=== PATIENT | male | born 1950 | race Caucasian/White ===

== ENCOUNTER 2016-12-27 10:36 | Inpatient (IN) ==
[2016-12-27] MEDS ORDERED: ZOFRAN ONE (11:25)
[2016-12-27] MEDS ORDERED: NS 2,000 ML ONE (11:25)
[2016-12-27 11:28] LABS: URINE CULTURE NEEDED? NO; URINE MICRO REVIEW NEEDED? NO; URINE SOURCE CATH
[2016-12-27] MEDS ORDERED: ZOFRAN IV ONE (11:31)
[2016-12-27] MEDS ORDERED: NS 1,000 ML IV ONE ×5 (11:31→13:01)
[2016-12-27] MEDS ORDERED: ZOSYN 3.375 GM/NS 3.375 GM/50 ML IVPB IV ONE (11:34)
[2016-12-27] MEDS ORDERED: VANCOMYCIN 1 GM/NS 1 GM/250 ML IVPB IV ONE (11:34)
[2016-12-27] MEDS ORDERED: DILAUDID IV ONE (11:35)
[2016-12-27 11:43] LABS: BILIRUBIN URINE NEGATIVE (NEGATIVE); BLOOD URINE NEGATIVE (NEGATIVE); COLOR YELLOW; GLUCOSE URINE 300 mg/dL (NEGATIVE); LEUKOCYTES URINE NEGATIVE (NEGATIVE); NITRITE URINE NEGATIVE (NEGATIVE); PROTEIN URINE TRACE mg/dL (NEGATIVE); TURBIDITY URINE CLEAR (CLEAR); UROBILINOGEN URINE 2 mg/dL (NORMAL)
[2016-12-27 11:45] LABS: UR EPITHELIAL CELLS <10 /HPF (<10); URINE BACTERIA NEGATIVE /HPF; URINE RBC <10 /HPF (<10); URINE WBC <10 /HPF (<10)
[2016-12-27 11:47] LABS: AGAP 14; ALBUMIN 3.3 g/dL (3.5-5.0); ALKALINE PHOSPHATASE 110 U/L (32-122); BUN 22 mg/dL (8-22); CALCIUM 8.3 mg/dL (8.8-10.2); CHLORIDE 99 mmol/L (98-107); COSMO 279; GOT 55 U/L (10-34); GPT 46 U/L (10-44); POTASSIUM 4.7 mmol/L (3.5-5.1); SODIUM 137 mmol/L (136-145); TCO2 24 mmol/L (25-35); TOTAL BILIRUBIN 0.89 mg/dL (0.20-1.00); TOTAL PROTEIN 5.5 g/dL (6.3-8.3)
--- NOTE | 2016-12-27 11:52 | EKG Report ---
Test Performed on : 12/27/2016 11:16:07 AM Test Reason : TACHYCARDIA Blood Pressure : / mmHG Vent. Rate : 145 BPM Atrial Rate : 145 BPM P-R Int : 140 ms QRS Dur : 084 ms QT Int : 264 ms P-R-T Axes : 033 -81 080 degrees QTc Int : 410 ms Sinus tachycardia. Left axis deviation Inferior infarct , age undetermined Possible Anterolateral infarct , age undetermined Abnormal ECG When compared with ECG of 27-NOV-2016 10:54, Significant changes have occurred Unconfirmed Result
[2016-12-27 11:53] LABS: INR 1.15; PROTIME 12.2 Seconds (9.2-11.7)
--- NOTE | 2016-12-27 12:00 | Diag Imaging Result Doc PS360 ---
CHEST-PORTABLE - 12/27/2016 INDICATION: fever TECHNIQUE: COMPARISON: 11/27/2016 FINDINGS: There is a stable left chest port in good position. There are new extensive right perihilar alveolar infiltrates. The left lung remains grossly clear. Heart size and pulmonary vascularity is normal. IMPRESSION: Extensive right perihilar infiltrate compatible with pneumonia or aspiration. Electronically signed by Judson Cm 12/27/2016 11:58 AM
[2016-12-27 12:04] LABS: BASO% 1.6 % (0.0-0.8); HEMATOCRIT 36.6 % (42.0-52.0); HEMOGLOBIN 12.8 g/dL (14.0-18.0); IMM GRAN# 0.02 X1000 (0.0-0.04); IMM GRAN% 3.2 % (0.0-0.5); LYMPH# 0.24 X1000 (1.2-3.4); LYMPH% 38.7 % (20.5-51.1); MANUAL DIFF NEEDED? YES; MCH 32.3 PG (27-31); MCV 92.4 FL (81-99); MONO# 0.03 X1000 (0.11-0.59); MONO% 4.8 % (1.7-9.3); MPV 10.7 FL (7.4-10.4); NEUT% 51.7 % (42.2-75.2); PLT 109 X1000 (130-400); RBC 3.96 XMIL (4.7-6.1)
--- NOTE | 2016-12-27 12:04 | Diag Imaging Result Doc PS360 ---
HIP W/PELVIS BILAT 2 VIEWS - 12/27/2016 INDICATION: fall TECHNIQUE: Four views COMPARISON: None FINDINGS: Bones are intact and normally aligned. Joint spaces and soft tissues are clear. There is extensive peripheral vascular disease of the femoral arteries and all the iliac arteries. IMPRESSION: No acute disease. Electronically signed by Judson Cm 12/27/2016 12:02 PM
[2016-12-27 12:13] LABS: EOS 2 % (1-10); LYMPHS 34 % (21-51); MONO 4 % (1-9)
[2016-12-27] MEDS ORDERED: NS 500 ML IV ONE (12:28)
[2016-12-27 12:54] LABS: ALLEN TEST YES; BE -0.6 mmoll (-3.0-3.0); BLOOD TYPE ARTERIAL; DRAW SITE L RADIAL; METHB 1.1 % (0.0-1.5); MODALITY CANNULA; O2(CT) 13.4 mL/dL (15.0-23.0); PCO2(98.6) 30 mmHg (35-45); PO2(98.6) 58 mmHg (60-100); SAMPLE BLOOD; SAO2 93.6 % (95.0-100.0); THB 10.4 g/dL (11.5-17.4); pH(98.6) 7.48 (7.35-7.45)
[2016-12-27] MEDS ORDERED: NS 500 ML ONE (12:56)
[2016-12-27] MEDS ORDERED: TAZIDIME 2 GM in NS 100 ML IV ONE (12:56)
[2016-12-27] MEDS ORDERED: TYLENOL ONE (12:57)
--- NOTE | 2016-12-27 12:59 | PROVIDER DOCUMENTATION ---
This chart was entered by Amanda Olmedo Scribe, acting as scribe for Milton Pratt MD. HPI-General Adult - General Chief Complaint: Fever Stated Complaint: fall- hip pain/tachycardia Time Seen by Provider: 12/27/16 10:48 Source: patient Allergies/Adverse Reactions: Patient Allergies Allergy/AdvReac Type Severity Reaction Status Date / Time No Known Allergies Allergy Verified 11/27/16 14:38 Home Medications: Home Medication List Medication Instructions Recorded Confirmed Last Taken Type Alprazolam [Xanax] 2 mg PO Q8H PRN PRN 10/14/13 10/11/15 10/10/15 22:00 History Mirtazapine [Remeron] 30 mg PO HS 10/04/15 10/11/15 11/26/16 20:00 History Duloxetine [Cymbalta] 60 mg PO QHS #0 capsule 10/07/15 10/11/15 11/27/16 08:00 Rx Nicotine Patch [Nicoderm Patch] 14 mg TD DAILY #0 patch.[id number] 10/07/15 10/11/15 Unknown Rx Acetaminophen [Tylenol] 325 mg PO Q4H PRN PRN #0 tablet 10/14/15 Unknown Rx Aspirin 81 mg PO DAILY #0 chewtab 10/14/15 11/27/16 08:00 Rx Eszopiclone [Lunesta] 2 mg PO QHS #0 tablet 10/14/15 11/26/16 21:00 Rx - History of Present Illness -Gen Adult Nature of Presenting Problems: Pt is a 66 year old male who was sent to the ED via EMS with a cc of falling today and last night. Pt has a hematoma on his right occipital, ecchymosis on his right mid arm and right hip. Pt reports he fell last night and also 45 minutes prior to arrival. PT is a cancer pt. Pt reports he has a fever and is nauseous. Location of Pain/Injury: reports: head, pelvis (right hip) Pain Radiation: reports: no radiation Quality of Pain: reports: sharp Severity: reports: mild Onset/Duration: reports: 24 hours ago Timing: reports: still present Context/Activities at Onset: reports: none Modifying Factors: improves with: nothing Associated Symptoms: reports: fever/chills, nausea, syncope, weakness. denies: vomiting Similar Symptoms Previously?: Yes Recently seen or treated by another doctor?: Yes Review of Systems - Adult - REVIEW OF SYSTEMS - ADULT Constitutional: reports: chills, fever. denies: fatique, weight loss Eyes: reports: no symptoms reported Ears, Nose, Mouth & Throat: denies: ear pain, sinus problem, loose teeth Cardiovascular: reports: no symptoms reported Respiratory: denies: cough, shortness of breath Gastrointestinal: reports: nausea. denies: diarrhea, vomiting Genitourinary: reports: no symptoms reported Musculoskeletal: reports: bone pain, muscle weakness. denies: frequent leg cramps, joint swelling Integumentary: reports: no symptoms reported Neurological: reports: no symptoms reported Psychiatric: reports: no symptoms reported Endocrine: reports: no symptoms reported Hematologic/Lymphatic: reports: no symptoms reported Allergic/Immunologic: reports: no symptoms reported All Other Systems: Reviewed and Negative Past History - Adult - PAST MEDICAL HISTORY-ADULT Review of Records: reports: Nursing Assessment Review Major Childhood Illnesses: reports: denies history Cardiovascular: reports: HTN Respiratory: reports: COPD Gastrointestinal: reports: cancer Obstetrical/Gynecological: reports: denies history Genitourinary: reports: denies history Musculoskeletal: reports: denies history Neurological: reports: denies history Endocrine/Immune: reports: Diabetes Other Conditions: reports: denies history - PRIOR SURGERIES/PROCEDURES Surgical/Procedure History: reports: cardiac stent - IMMUNIZATION STATUS Childhood Immunizations: See Nurse Assessment Flu Vaccine: See Nurse Assessment - FAMILY HISTORY Family History: reviewed, not pertinent Physical Exam-General - PHYSICAL EXAM-ADULT Initial Vital Signs Reviewed: Yes - CONSTITUTIONAL General Appearance: alert, mild distress - EYES Eyes: PERRL/EOMI, pink conjunctivae - HEAD, EARS, NOSE, MOUTH & THROAT HENMT: normocephalic/atraumatic, moist mucous membranes - NECK Neck: non-tender, full range of motion - RESPIRATORY Respiratory: chest non-tender, lungs clear, normal breath sounds - CARDIOVASCULAR Cardiovascular: tachycardia, systolic murmur (4/6) - GASTROINTESTINAL (ABDOMEN) Abdominal Exam: normal bowel sounds, non tender, soft - MUSCULOSKELETAL Back Exam: normal inspection, no vertebral tenderness Extremity: negative: normal range of motion - SKIN Integumentary: ecchymosis (right mid arm and right hip) - NEUROLOGIC Neurologic: grossly normal - PSYCHIATRIC Psych/Mental Status: normal mood/affect, normal thought content, normal thought process, oriented x 3 Progress - PLAN OF CARE/RESULTS Progress/Plan/Lab Results: Vital Signs - 8 hr 12/27/16 10:42 Temperature 100.5 F H Pulse Rate 132 H Respiratory Rate 18 Blood Pressure 91/65 O2 Sat by Pulse Oximetry 96 Result Diagrams: 12/27/16 11:00 12/27/16 11:00 - EKG 1 Time of EKG reading by physician:: 11:24 EKG Read and Signed by:: Milton Pratt EKG Interpretation (*Must complete 3 of following elements*): Abnormal Rate: 145 (left axis deviation; inferior infart, age undetermined; possible anterolateral infarct, age undetermined ) Rhythm: sinus tachycardia - CONSULTS/PCP/HOSPITALIST Notification #1 *Consult/PCP/Hospitalist*: Foster Time Discussed: 12:57 Consult Disposition: Admit Departure - Departure Date of Disposition Decision: 12/27/16 Time of Disposition Decision: 12:00 DIAGNOSIS: Sepsis Disposition: ADMITTED INPATIENT 09 Certified Medical Emergency: Emergent Condition: Fair Referrals and Follow-Ups: Zack Elkins MD [ACTIVE STAFF PHYSICIAN] - - Critical Care Note This patient required my direct & personal management of CC.: Yes Total Time (mins): 40 (following BP, starting pressors, more fluids, calling admission MD) Critical Care Statement: This patient required my direct personal management to treat or rule out processes, the absence of which, could potentiallly result in sudden, clinically significant life or limb threatening deterioration. This chart was documented by the indicated scribe, (Amanda Olmedo Scribe) and accurately reflects the services I performed and decisions made by me, Milton Pratt MD, as attested by the provider's signature.
[2016-12-27] MEDS ORDERED: TYLENOL PO ONE (13:00)
[2016-12-27] MEDS ORDERED: FENTANYL IV ONE (13:22)
[2016-12-27] MEDS: LEVOPHED 8 MG in D5 1/2 NS 250 ML IV SCH ×4 (15:22→18:08)
--- NOTE | 2016-12-27 15:48 | Diag Imaging Result Doc PS360 ---
EXAM: ELBOW COMPLETE RIGHT HISTORY: TRAUMA TECHNIQUE: Portable three views COMMENT: The lateral view is suboptimal. There is soft tissue swelling and possibly some soft tissue gas superficial to the olecranon. No evidence of acute fracture or dislocation is present. IMPRESSION: No acute bony disease. Electronically signed by Chalino Stiles 12/27/2016 3:46 PM
[2016-12-27] MEDS ORDERED: MORPHINE IV ONE (17:00)
[2016-12-27] MEDS: DUONEB (A & A) INH PRN (17:19)
[2016-12-27] MEDS ORDERED: ATIVAN ONE (17:49)
[2016-12-27] MEDS ORDERED: VANCOMYCIN IV PER PHARMACY MISC SCH (18:00)
[2016-12-27] MEDS ORDERED: ATIVAN IV ONE (18:03)
--- NOTE | 2016-12-27 18:44 | HISTORY AND PHYSICAL ---
HISTORY OF PRESENT ILLNESS: Mr. Palomares is a 66-year-old, white gentleman, patient of Dr. Patel, who has metastatic esophageal cancer who fell twice, once last night and once this morning. He called Dr. Zack Elkins who is his oncologist and he told him to come up here. He has been sick and was found to have pneumonia on the right side. Mr. 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 Mr. Palomares also has a history of heart attack and 2 stents placed. He has maturity onset diabetes as well as history of hypertension. He had arthroscopic knee surgery on the left side and appendectomy. He has gone through radiation as well as chemotherapy and he is under the care of Dr. Elkins. CURRENT MEDICATIONS: Rosuvastatin 20 mg daily, mirtazapine 30 mg daily, metformin 500 mg daily, [place] 7.5, fenofibrate acid 35 mg, duloxetine 30 mg daily, dexamethasone 4 mg twice a day, bupropion and alprazolam. REVIEW OF SYSTEMS: He has some intermittent chest pain. He is very weak and nauseous. He had some head trauma and has some headaches related to that. REVIEW OF SYSTEMS: Noncontributory. PHYSICAL EXAMINATION: VITAL SIGNS: Temperature 98.2 degree Fahrenheit, pulse 102 per minute, respiratory rate 26 per minute, blood pressure was 96/65, O2 saturation is 94. HEENT: Normocephalic. He has some bruising on the head. He had joce holes done in the past to get the radiation to the brain. PERRLA. Fundus examination not done at the present time. ENT examination unremarkable. NECK: Supple. JVP normal. There is no evidence of lymphadenopathy, thyroid enlargement. EXTREMITIES: Minimal pedal edema noted. No calf tenderness noted. No cyanosis or clubbing noted. VASCULAR: He has anemia. Pedal pulses are well felt. BREAST EXAMINATION: Normal. CHEST: Normal on inspection. LUNGS: Clear to auscultation except for right basal rales. PMI in the normal position. HEART: Sounds normal. No murmur, gallop or rub noted. ABDOMEN: Nondistended. Hernial orifices normal. No guarding, rigidity, free fluid, masses, or organomegaly. Bowel sounds normal. RECTAL EXAMINATION: Deferred. CENTRAL NERVOUS SYSTEM: Patient is alert and oriented. Speech is normal. Cranial nerves normal. Motor and sensory system examination: He moves all the extremities. Deep tendon reflexes normal. Plantars downgoing. Skull and spine examination normal for age. No cerebellar signs or signs of meningeal irritation. LOCOMOTOR EXAMINATION: Unremarkable. SKIN EXAMINATION: Unremarkable. LABORATORY: Reveals pancytopenia. INR is 1.15. Arterial blood gases reveal mild hypoxia and has minimal dehydration. Plasma lactate is 4.5. Urinalysis is negative. IMPRESSION: 1. Pneumonia. 2. Pancytopenia. 3. History of metastatic esophageal cancer. 4. History of head trauma today following a fall. PLAN: 1. We will try to get a CT scan of the brain. 2. Start IV antibiotics. 3. Get ID consultation as well as a consultation with Dr. Elkins and Cardiology consultation as he has some recurrent chest pain. EKG has shown significant ST-elevation in leads V3, V4, V5 and V6. He is in sinus tachycardia, however, intermittently he has some short runs of ventricular tachycardia as noted on the telemetry in the emergency room. cc: MD Tony Wood Jr, MD
--- NOTE | 2016-12-27 19:36 | Diag Imaging Result Doc PS360 ---
EXAM: HEAD W/O CONTRAST TECHNIQUE: Dose reduction protocol was used. INDICATION: head injury,Brain metastasis. COMPARISON: None. FINDINGS: There is no definite acute infarct given the limited sensitivity of CT versus MRI. There is no discrete intracranial mass, mass effect, or intracranial hemorrhage. There is a moderate-sized subgaleal scalp hematoma near the apex of the skull on the right. There are small radiopaque foreign bodies embedded in the skull. Two are embedded anteriorly on the right and left and one is in the right parietal region in the region of the subgaleal hematoma. These are likely treatment related. The hematoma on the right is probably related to placement of the small metallic focus. IMPRESSION: No evidence of acute intracranial pathology by CT. Electronically signed by Eduard Rooney 12/27/2016 7:33 PM
[2016-12-27] MEDS: ZOSYN 3.375 GM/NS 3.375 GM/50 ML IVPB IV SCH (21:08)
[2016-12-27] MEDS: REMERON PO SCH (21:09)
[2016-12-27] MEDS: CYMBALTA PO SCH (21:09)
[2016-12-27] MEDS: DECADRON PO SCH (21:09)
[2016-12-27] MEDS: DILAUDID IM PRN (21:16)
[2016-12-27] MEDS: VANCOMYCIN 1.4 GM in NS 250 ML IV SCH (23:08)
[2016-12-28] MEDS: LEVOPHED 8 MG in D5 1/2 NS 250 ML IV SCH (01:25)
[2016-12-28] MEDS: ZOSYN 3.375 GM/NS 3.375 GM/50 ML IVPB IV SCH ×2 (02:28→08:27)
--- NOTE | 2016-12-28 05:34 | EKG Report ---
Test Performed on : 12/27/2016 6:25:08 PM Test Reason : CP Blood Pressure : / mmHG Vent. Rate : 110 BPM Atrial Rate : 110 BPM P-R Int : 150 ms QRS Dur : 088 ms QT Int : 332 ms P-R-T Axes : 019 -72 048 degrees QTc Int : 449 ms Sinus tachycardia. Left axis deviation Inferior infarct (cited on or before 27-DEC-2016) Cannot rule out Anterior infarct (cited on or before 27-DEC-2016) Abnormal ECG When compared with ECG of 27-DEC-2016 17:48, (Unconfirmed) Serial changes of evolving Anterior infarct present Serial changes of evolving Inferior infarct present Unconfirmed Result
--- NOTE | 2016-12-28 05:49 | EKG Report ---
Test Performed on : 12/27/2016 5:48:15 PM Test Reason : No Order in [facility] Blood Pressure : / mmHG Vent. Rate : 125 BPM Atrial Rate : 125 BPM P-R Int : 150 ms QRS Dur : 090 ms QT Int : 316 ms P-R-T Axes : 036 -81 074 degrees QTc Int : 456 ms Sinus tachycardia. Left axis deviation Low voltage QRS Inferior infarct (cited on or before 27-DEC-2016) Anterolateral infarct (cited on or before 27-DEC-2016) ACUTE GA / STEMI Consider right ventricular involvement in acute inferior infarct Abnormal ECG When compared with ECG of 27-DEC-2016 11:16, (Unconfirmed) Questionable change in initial forces of Anterolateral leads Questionable change in initial forces of Inferior leads ST elevation now present in Inferior leads ST elevation now present in Anterior leads Unconfirmed Result
[2016-12-28 06:06] LABS: HEMATOCRIT 29.1 % (42.0-52.0); HEMOGLOBIN 9.8 g/dL (14.0-18.0); LYMPH# 0.25 X1000 (1.2-3.4); LYMPH% 32.5 % (20.5-51.1); MANUAL DIFF NEEDED? NO; MCH 31.6 PG (27-31); MCHC 33.7 g/dL (33-37); MCV 93.9 FL (81-99); MONO# 0.02 X1000 (0.11-0.59); MONO% 2.6 % (1.7-9.3); MPV 11.5 FL (7.4-10.4); NEUT% 64.9 % (42.2-75.2); PLT 72 X1000 (130-400)
[2016-12-28 06:22] LABS: AGAP 12; BUN 24 mg/dL (8-22); CALCIUM 7.2 mg/dL (8.8-10.2); CHLORIDE 102 mmol/L (98-107); COSMO 280; POTASSIUM 4.3 mmol/L (3.5-5.1); SODIUM 135 mmol/L (136-145); TCO2 21 mmol/L (25-35)
[2016-12-28] MEDS: HUMALOG SUBQ SCH ×4 (06:23→20:21)
--- NOTE | 2016-12-28 06:25 | Diag Imaging Result Doc PS360 ---
EXAM: CHEST-PORTABLE HISTORY: pneumonia TECHNIQUE: Portable COMPARISON: 12/27/2016 FINDINGS: There are dense infiltrates throughout the right lung. These are more pronounced than on the prior exam. Smaller infiltrates in the left base as well. No change in the left-sided collecting portacatheter. No pneumothorax. No cardiomegaly. No pleural effusions identified. IMPRESSION: Worsening infiltrates. Electronically signed by Miguel Arceo 12/28/2016 6:22 AM
[2016-12-28] MEDS: DECADRON PO SCH ×2 (08:27→20:22)
[2016-12-28] MEDS: CRESTOR PO SCH (08:27)
[2016-12-28] MEDS: GLUCOPHAGE PO SCH (08:27)
[2016-12-28] MEDS: DILAUDID IM PRN (08:49)
--- NOTE | 2016-12-28 09:37 | CONSULTATION ---
DATE OF CONSULTATION: 12/28/2016 INDICATION: Possible arrhythmia. HISTORY OF PRESENT ILLNESS: Mr. Palomares is a 66-year-old, white male with a history of metastatic esophageal cancer followed by [facility]. He apparently had some sort of procedure on Saturday, in which they did an intracranial placement of beads within a metastases. He apparently had a fall that night and the next day on Saturday he was supposed to present to Dr. Elkins's office, but did not do that. He apparently had another fall and subsequently presented to the ER last night. He has reported some issue with cough, but has not had any issues with fever. He has been diagnosed with pneumonia here, as well as pancytopenia. There was some question of some arrhythmia last night, specifically possible ventricular tachycardia. Patient did not any heart racing. PAST MEDICAL HISTORY: 1. Significant for coronary disease with previous PCI. I do not have my records available for review at this time. 2. History of metastatic esophageal cancer with metastases to the brain, as well as below the diaphragm. According to his most recent note from [facility] that was from December 21, it appears that he has had progression of disease despite treatment. 3. Type 2 diabetes. 4. Hyperlipidemia. SOCIAL HISTORY: No current tobacco use. FAMILY HISTORY: Significant for hypertension. REVIEW OF SYSTEMS: A 10 system review of systems is negative, except for those things mentioned in HPI. He has had some reduced oral intake secondary to difficulty swallowing. PHYSICAL EXAMINATION: Vital Signs: Patient is afebrile. His heart rates have been predominantly in the 80s to 90s. His blood pressure has been in the 110s to 130s systolic. General: He is an ill-appearing white male currently in no acute distress and actually is quite pleasant. HEENT: Oropharynx is moist. Normal dentition. Eye examination is pink conjunctivae, white sclerae. Neck: Examination shows no obvious thyromegaly or thyroid tenderness. Cardiovascular: He is in a regular rate and rhythm. Presently his monitor shows sinus tachycardia in the low 100s. He has no lower extremity edema. Chest: Exam has very coarse breath sounds noted bilaterally throughout all lung roy. He has a very difficult time rolling over and very poor inspiratory effort. Abdomen: Soft, nontender, nondistended. He has no obvious organomegaly. Skin Examination: Notable for a large ecchymoses in the right upper lateral hip area. In addition he has ecchymoses in his superior occipital region on the right side corresponding to an episode of falling and hitting his head. He has a surgical wound site kind of in the posterior frontal area on the right as well of his head. This appears to be well-healing, not draining. Neurological: He is moving all extremities well. No lateralizing deficits. Psychiatric: Alert, oriented and pleasant. He has a normal mood and affect. PERTINENT DATA: He had an echocardiogram in January showing an EF of 60%. Moderate left ventricular hypertrophy. His aorta was a little bit dilated at 4.6 cm. Mild MR was noted. His laboratory data shows a white count of 0.7, hematocrit 29.1, platelet count of 72. His sodium is 135, potassium 4.3, BUN 24, creatinine 0.9. His troponin was elevated at 0.151. His lactate was 4.5 on presentation. His electrocardiogram initially at 1748 hours showed sinus tach rate of 125 beats per minute. He had a nonspecific intraventricular conduction delay on that study. He does have inferior Q-waves. Subsequent EKG present at 1825 hours shows sinus tachycardia as QRS has narrowed down (it is at 110 beats per minute). He did have some telemetry at 1743 hours, which showed sinus tachycardia with aberrancy. At 1742 hours just prior to that, it appeared that he again had an aberrantly conducted sinus tachycardia with possibly a PVC in there. Multiple reports were reviewed, including a chest x-ray which showed dense infiltrates throughout the right lung, more pronounced since prior exam. Head CT showed no evidence of acute intracranial pathology. Post surgical changes from the implantation of the radiopaque beads were noted, as well as a subgaleal hematoma in the right parietal region. ASSESSMENT: 1. Sepsis likely secondary to pneumonia. 2. Advanced stage IV esophageal cancer, which seems to be progressing despite medical therapy. 3. History of coronary disease. PLAN: Do not believe that the patient has had significant arrhythmias during this hospitalization. Rather, it appears to be sinus tachycardia with aberrancy. Even if it was ventricular tachycardia, he does not seem to be a candidate for any invasive modalities secondary to the brain metastases, as well as secondary to his pancytopenia. I would recommend conservative therapy in this patient for his cardiac disease, and specifically I would recommend primarily treatment of the pneumonia. I do not know if I have much to offer in this patient's case presently. I will check an echocardiogram just to evaluate EF and possibility of a pericardial effusion. cc: MD Tony Ram Jr, MD
[2016-12-28] MEDS: DUONEB (A & A) INH PRN (09:47)
[2016-12-28] MEDS ORDERED: GRANIX SUBQ ONE (11:20)
[2016-12-28] MEDS: ZYRTEC PO SCH ×2 (11:20→20:22)
[2016-12-28] MEDS: MS CONTIN PO SCH ×2 (11:36→20:22)
[2016-12-28] MEDS: WELLBUTRIN PO SCH (11:38)
[2016-12-28] MEDS: MERREM 1 GM in NS 50 ML IV SCH ×2 (12:00→19:30)
--- NOTE | 2016-12-28 14:52 | CONSULTATION ---
DATE OF CONSULTATION: 12/28/2016 CONCLUSION: The patient was admitted to the hospital. He has fallen and severely hurt his right side. He on x-ray has a diffuse pneumonia in the right lung and also an infiltrate in the left lower lobe. Possibly the patient has an aspiration pneumonia. He has pancytopenia and his absolute neutrophil count is only 320. Patient also has metastatic esophageal cancer for which he is getting chemotherapy and radiation therapy and recently had what he told me was gold that was implanted in his head. RECOMMENDATIONS: I have discontinued Zosyn and placed the patient on meropenem. I agree with treating with the vancomycin pending culture results. DISCUSSION: The patient was unable provide a history and no family member was present. He as mentioned above fell and injured his right side quite a bit. His CBC shows a white count of 770, hemoglobin 9.8, and platelet count 72,000. Blood gases show a pH of 7.48, a PO2 of 58, and a pCO2 of 30. Creatinine is 0.9. GFR is greater than 60. Chest x-ray shows diffuse right lung infiltrates and also infiltrate in the left lower lobe. CT of the head showed no acute disease. Liver function studies are normal except for an AST of 55. Urinalysis showed no white cells or bacteria. Blood cultures are pending. PAST MEDICAL HISTORY/REVIEW OF SYSTEMS: I was unable to obtain. The patient was very lethargic, he had medication. His main complaint seems to be that he was hurting a lot on his right side which is the side he fell on as mentioned above. ALLERGIES: The patient's chart indicates no known allergies. HOME MEDICATIONS: Include morphine, dexamethasone, Crestor, Wellbutrin, Glucophage, hydrocodone, Remeron, Cymbalta, and Xanax. PHYSICAL EXAMINATION: Vital Signs: The patient's temperature is 98.6 degrees, pulse 110, respirations 22, blood pressure 114/82. The patient is a 66-year-old. He weighs 159 pounds. General: This is an ill- appearing, elderly male who is in no acute distress. Head, eyes, ears, nose, and throat: He can hear my spoken words. He can see near objects. No drainage was noted from the nose or ears. Neck: No meningismus. Chest: Patient has a Port-A-Cath in place. The site is not erythematous or swollen. Lungs: Clear to auscultation. Cardiovascular: Regular heart rate. Abdomen: Soft and not tender. Neurologic: The patient is awake. He can move his extremities but it is difficult for him to move his right side because he fell on that side, but he is able to move it somewhat. His sensory exam, he was intact to touch bilaterally. Integument: Patient had ecchymoses on the right side of his body and also his arm, and on the thigh, on the leg. ASSESSMENT/PLAN: Patient has pneumonia and neutropenia. The plan is to change the antibiotic from Zosyn to meropenem and continue vancomycin. COMORBIDITIES: Include that he has metastatic esophageal cancer, the patient also has gastroesophageal reflux disease, also has hyperlipidemia and diabetes mellitus. Thank you for the consult. cc: MD Tony Kohler Jr, MD MTDD
[2016-12-28] MEDS: VANCOMYCIN 1.4 GM in NS 250 ML IV SCH (17:54)
--- NOTE | 2016-12-28 18:09 | PROGRESS NOTE ---
DATE: 12/28/[address] Level [address] Patel. SUBJECTIVE: 66-year-old white gentleman, admitted to the ICU yesterday by Dr. Patel who came in at the request of Dr. Elkins who has been treating for esophageal cancer. Apparently patient is undergoing chemotherapy. History of fall twice and sustained injury to the right elbow. He was seen in the emergency room. He was found to have early sepsis syndrome with hypotension, tachycardic associated with right middle lobe pneumonia and febrile neutropenia. White cell count 0.6. Patient was admitted in ICU with IV antibiotics and IV Levophed. He has been off on Ventimask. PAST MEDICAL HISTORY, PAST SURGICAL HISTORY, MEDICINES: Were reviewed. REVIEW OF SYSTEMS: HEENT: No headache. No vision problems. Cardiopulmonary: No chest pain, shortness of breath, PND, orthopnea. No cough. GI: No nausea, vomiting, abdominal pain. : No history of hesitancy, frequency. No swelling of feet. Complains of right elbow pain requiring some pain medicine. Neuro: Lucid. No headaches. No weakness. PHYSICAL EXAMINATION: Afebrile. Tachycardic. Blood pressure is 124/80, 6 L nasal cannula. Patient is alert and oriented.HEENT Exam: Slightly pale. Pupils equal, reactive to light. Tongue is in midline. Neck: Supple. Port-A-Cath seen on the left side of the chest. Chest: Bilateral air entry. Heart: Sounds are regular. Abdomen: Belly is soft, nontender. Good bowel sounds. Extremities: No peripheral edema, cyanosis. No obvious neurological deficits noted. Right elbow is wrapped. Bandage was applied. INVESTIGATIONS: CBC: White cell count 0.7, hematocrit 29, platelets 72,000. SMA 7: Sodium 135, potassium 4.3, chloride 102, BUN 24, creatinine 0.9, glucose 200. Calcium 7.2. LFTs were normal. Blood cultures are pending. Chest x-ray on 12/28/2016 right lower lobe pneumonia. Port-A-Cath seen on the left side of the chest. CT head: No evidence of acute intracranial pathology. Small scalp hematoma noted. Elbow x-rays: No acute bony disease noted. Hip and pelvic x-rays: No acute disease. ASSESSMENT AND PLAN: 1. Early sepsis syndrome due to febrile neutropenia associated with pneumonia. Plan is hematological support, as per Dr. Elkins. 2. Hypotension. IV Levophed. 3. Oxygen protocol. 4. Type 2 diabetes on Humalog subcu sliding scale. 5. Type 2 diabetes on metformin. 6. Hyperlipidemia on Crestor and currently patient has been taking IV vancomycin and meropenem. 7. Pancytopenia. Receiving Granix 480 mcg subcutaneous daily and daily monitoring of this progress. 8. Advanced directives, living will, DNR. Level of documentation 35 minutes. cc: MD Tony Matamoros Jr, MD
[2016-12-28] MEDS: REMERON PO SCH (20:21)
[2016-12-28] MEDS: CYMBALTA PO SCH (20:21)
[2016-12-29] MEDS: LEVOPHED 8 MG in D5 1/2 NS 250 ML IV SCH ×2
[2016-12-29] MEDS: MERREM 1 GM in NS 50 ML IV SCH ×3 (02:37→19:19)
[2016-12-29] MEDS ORDERED: DUONEB (A & A) ONE (03:10)
[2016-12-29] MEDS: HUMALOG SUBQ SCH ×4 (06:07→20:23)
[2016-12-29] MEDS: WELLBUTRIN PO SCH (08:46)
[2016-12-29] MEDS: CRESTOR PO SCH (08:46)
[2016-12-29] MEDS: MS CONTIN PO SCH ×2 (08:46→20:24)
[2016-12-29] MEDS: GLUCOPHAGE PO SCH (08:47)
[2016-12-29] MEDS: DECADRON PO SCH ×2 (08:47→20:24)
[2016-12-29] MEDS: ZYRTEC PO SCH ×2 (08:47→20:24)
[2016-12-29] MEDS: GRANIX SUBQ SCH (10:14)
[2016-12-29 10:26] LABS: BASO% 3.2 % (0.0-0.8); HEMATOCRIT 28.9 % (42.0-52.0); HEMOGLOBIN 10.1 g/dL (14.0-18.0); LYMPH# 0.27 X1000 (1.2-3.4); LYMPH% 12.2 % (20.5-51.1); MANUAL DIFF NEEDED? NO; MCH 31.8 PG (27-31); MCHC 34.9 g/dL (33-37); MCV 90.9 FL (81-99); MONO# 0.04 X1000 (0.11-0.59); MONO% 1.8 % (1.7-9.3); MPV 11.3 FL (7.4-10.4); NEUT% 82.8 % (42.2-75.2); PLT 55 X1000 (130-400); RBC 3.18 XMIL (4.7-6.1)
[2016-12-29] MEDS: DUONEB (A & A) INH PRN ×3 (10:55→22:50)
--- NOTE | 2016-12-29 10:57 | PROGRESS NOTE ---
DATE: 12/29/2016 SUBJECTIVE: The patient is awake, eating well, and for the last 24 hours hemodynamics were stable. He is on Levophed 3 mcg. REVIEW OF SYSTEMS: General: No difficulty in swallowing. No shortness of breath, chest pain. GI: No GI symptoms. OBJECTIVE: Vital Signs: On examination, he is afebrile, tachycardic. Blood pressure is 120/70 on 6 L nasal cannula. HEENT exam: Atraumatic, normocephalic. Pupils equal, react to light. TMs are normal. Nose and throat within normal limits. Neck: Supple. No lymphadenopathy. Lungs: He had rhonchi, crackles on the right side of the chest. Port-A-Cath seen in the left upper chest. Heart: Distant heart sounds. Abdomen: Belly is soft, nontender. Good bowel sounds. Mclain was placed. Extremities: No peripheral edema. Neurologic exam: No focal deficits. INVESTIGATIONS: CBC: White cell count 0.7, hematocrit 29, platelets 72. SMA 7: Sodium 135, potassium 4.3, chloride 102, BUN 24, creatinine 0.9, glucose 200 ,calcium 7.2. ASSESSMENT AND PLAN: 1. Sepsis syndrome due to pneumonia with underlying pancytopenia, stable. Slowly wean off Levophed. 2. Pancytopenia on hematological support, currently receiving Xanax. 3. Right-sided pneumonia, most likely aspiration, and currently patient has been on antibiotics, meropenem 1 g q. 8 hours and vancomycin. 4. Type 2 diabetes on metformin, currently stable. 5. Living Will, [id number]. LEVEL OF DOCUMENTATION: 25 minutes. cc: MD Tony Matamoros Jr, MD
[2016-12-29] MEDS: VANCOMYCIN 1.4 GM in NS 250 ML IV SCH (11:00)
--- NOTE | 2016-12-29 11:24 | PROGRESS NOTE ---
DATE: 12/29/2016 SUBJECTIVE: Mr. Palomares is sitting in hospital bed and denies any acute complaints. OBJECTIVE/VITAL SIGNS: Temperature 97.5 degrees, heart rate 111, respiratory rate 22, blood pressure 89/69, O2 saturation 96% on 6 L nasal cannula. LABS: There are no new labs for 12/29/2016. CBC and CMP are currently pending. PHYSICAL EXAM: CV: Tachycardia, but regular rhythm. S1, S2 heard. Coarse breath sounds bilaterally. Abdomen: Soft, nontender, nondistended. Positive bowel sounds. Extremities: Edema x4, 1+. ASSESSMENT AND PLAN: 1. Stage IV esophageal cancer. Patient is status post carboplatin and Taxol last on 12/26/2016. Treatment is currently on hold. 2. Neutropenic fever. The patient will continue on intravenous antibiotics with vancomycin and meropenem. The patient also will continue to get Granix. We will continue to monitor his complete blood count closely. I will order a complete blood count for today. Other supportive care including transfusions and platelets as needed. 3. Pneumonia. Continue oxygen support, as well as nebulizer treatments and intravenous antibiotics. Dictated by LATESHA Bautista for Letty Vogel MD cc: MD Tony Estrella Jr, MD
--- NOTE | 2016-12-29 13:43 | ECHO REPORT ---
ORDER DATE: 12/28/2016 INTERPRETING PHYSICIAN: Dr. Kiran Busby ECHOCARDIOGRAPHIC MEASUREMENTS: Interventricular septum: 1.5 cm. Left ventricular posterior wall: 0.9 cm. Diastolic diameter: 4.0 cm. Left atrium: 4 cm. Aortic root: 4 cm. SUMMARY OF THE 2-DIMENSIONAL IMAGIN. Technically suboptimal study. Poor acoustic window. 2. Aortic valve leaflets are trileaflet. Mitral valve was normal. Tricuspid valve was normal. Ascending aorta was mildly enlarged. 3. Mitral valve leaflets are normal. 4. Normal left ventricular cavity size. There is asymmetric left ventricular hypertrophy. Estimated ejection fraction of 55%. There is inferoapical hypokinesis. 5. There is a trace to mild mitral regurgitation. Mild tricuspid regurgitation. Peak velocity across the tricuspid valve was 2.5 m/sec by Doppler studies. There is no aortic stenosis or regurgitation. There is no pericardial effusion or obvious intracardiac mass or thrombus seen. Technically suboptimal study. cc: MD Enrico Rose MD Roger H. Moss Jr, MD
[2016-12-29] MEDS: CYMBALTA PO SCH (20:23)
[2016-12-29] MEDS: REMERON PO SCH (20:23)
[2016-12-29] MEDS ORDERED: ZYRTEC PO SCH (21:00)
[2016-12-30] MEDS: MERREM 1 GM in NS 50 ML IV SCH ×3 (02:31→18:04)
[2016-12-30] MEDS: XANAX PO PRN (04:18)
[2016-12-30] MEDS: VANCOMYCIN 1.4 GM in NS 250 ML IV SCH (04:40)
[2016-12-30 05:49] LABS: BASO% 0.7 % (0.0-0.8); HEMATOCRIT 27.4 % (42.0-52.0); HEMOGLOBIN 9.6 g/dL (14.0-18.0); IMM GRAN# 0.12 X1000 (0.0-0.04); IMM GRAN% 8.6 % (0.0-0.5); LYMPH# 0.19 X1000 (1.2-3.4); LYMPH% 13.6 % (20.5-51.1); MANUAL DIFF NEEDED? YES; MCH 31.7 PG (27-31); MCV 90.4 FL (81-99); MONO# 0.04 X1000 (0.11-0.59); MONO% 2.9 % (1.7-9.3); MPV 11.6 FL (7.4-10.4); NEUT% 74.2 % (42.2-75.2); PLT 47 X1000 (130-400); RBC 3.03 XMIL (4.7-6.1)
[2016-12-30] MEDS: HUMALOG SUBQ SCH ×4 (06:03→20:16)
[2016-12-30 06:53] LABS: BANDS 3 % (0-1); LYMPHS 11 % (21-51); MONO 4 % (1-9)
--- NOTE | 2016-12-30 07:08 | Diag Imaging Result Doc PS360 ---
EXAM: CHEST-PORTABLE HISTORY: dyspnea TECHNIQUE: AP portable chest at 0500 COMMENT: Compared to the previous study of 12/28/2016 there has been improvement in the alveolar opacification in the right upper lobe. Otherwise has been no significant change. IMPRESSION: Improved pulmonary edema. Electronically signed by Chalino Stiles 12/30/2016 7:06 AM
[2016-12-30] MEDS: GLUCOPHAGE PO SCH (08:11)
[2016-12-30] MEDS: CRESTOR PO SCH (08:11)
[2016-12-30] MEDS: DECADRON PO SCH ×2 (08:11→20:14)
[2016-12-30] MEDS: ZYRTEC PO SCH ×2 (08:11→20:13)
[2016-12-30] MEDS: MS CONTIN PO SCH ×2 (08:11→20:15)
[2016-12-30] MEDS: WELLBUTRIN PO SCH (08:11)
[2016-12-30] MEDS: GRANIX SUBQ SCH (09:02)
--- NOTE | 2016-12-30 10:31 | PROGRESS NOTE ---
DATE: 12/30/2016 SUBJECTIVE: In the ICU for the last 24 hours. Patient is doing very well. More alert. He has off of Levophed. Hemodynamics are stable. REVIEW OF SYSTEMS: Trouble swallowing with solids. No shortness of breath. No chest pain. Right elbow slightly improving. No GI symptoms. No swelling of feet. Neuro exam, no confusion noted. OBJECTIVE: Vital signs: Temp is 98 degrees, pulse is 80, blood pressure is 111/74, on room air 100%. HEENT Exam: Within normal limits. Neck: Supple. Chest: Decreased rhonchi on the right side. Heart: Sounds are regular. Abdomen: Belly is soft, nontender. Good bowel sounds. Neurologic: No neurological deficits. INVESTIGATIONS: White cell count of 1.4, hematocrit 27, platelets 47,000. Chest x-ray is improving on the right lung pneumonia. Blood cultures were negative. ASSESSMENT AND PLAN: 1. Sepsis syndrome due to aspiration with pancytopenia. Neutropenia slowly improving. Continue on neutropenic precautions. Currently receiving meropenem 1 g q.8, along with vancomycin. 2. Pancytopenia. On Granix on a daily basis. 3. Hypertension is better off vasopressors. 4. Esophageal cancer with dysphagia only on solids. 5. Deep vein thrombosis prophylaxis. Basically with antithrombotic stockings in light of thrombocytopenia. 6. Nonsustained ventricular tachycardia. Echocardiography findings noted EF 55%, inferior apical hypokinesis. Currently stable. Living Will, DNR. LEVEL OF DOCUMENTATION: 25 minutes. cc: MD Tony Matamoros Jr, MD
[2016-12-30] MEDS: DUONEB (A & A) INH PRN ×2 (16:14→19:29)
--- NOTE | 2016-12-30 18:29 | PROGRESS NOTE ---
DATE: 12/30/2016 CHIEF COMPLAINT: "When can I go home." HISTORY OF PRESENT ILLNESS: Mr. Palomares revealed much better over the last 24 hours. He denies any new complaints today. Eating well. PHYSICAL EXAMINATION: Vital Signs: Temperature 97.5 degrees, pulse 84, respiratory rate 18, blood pressure 106/74, O2 saturation 100% on room air. General: This is a chronically ill- appearing, man in no acute distress. He has numerous family members in his room during consultations. Eyes: Sclerae anicteric. Cardiovascular: Regular rate and rhythm. Normal S1, S2. No murmurs, rubs, or gallops. Pulmonary: Coarse bilateral breath sounds with scattered rhonchi. No wheezes, rales, or rhonchi. No increased work of breathing. Gastrointestinal: Abdomen is soft, nontender, nondistended with normoactive bowel sounds. Extremities: No clubbing, cyanosis, or edema. 2+ pulses x4. Neurologic: Alert and oriented x 3. No focal deficit. LABORATORY DATA: White count 1.4, hemoglobin 9.6, platelet count 47,000. IMAGING: No new imaging. ASSESSMENT AND PLAN: 1. Stage IV esophageal cancer status post carboplatin Taxol therapy. Treatment is being held at this time. Expect count recovery over the next few days. Continue supportive care. Reassess for further treatment once acute events resolve. 2. Neutropenic fever: His fever has resolved. Cultures are pending. He continues on empiric antibiotic coverage at this time. He continues on growth factor support at this time. 3. Pancytopenia: Transfuse p.r.n. His platelet count is still low at 47,000, with no signs of bleeding. No need for transfusion today. 4. Pneumonia: He has 100% oxygen saturation on room air. Continue to monitor. cc: MD Tony Estrella Jr, MD
[2016-12-30] MEDS: CYMBALTA PO SCH (20:13)
[2016-12-30] MEDS: REMERON PO SCH (20:14)
[2016-12-30] MEDS: VANCOMYCIN 1 GM/NS 1 GM/250 ML IVPB IV SCH (23:50)
[2016-12-31 01:28] LABS: HEMATOCRIT 25.1 % (42.0-52.0); HEMOGLOBIN 8.8 g/dL (14.0-18.0); IMM GRAN# 0.14 X1000 (0.0-0.04); IMM GRAN% 18.7 % (0.0-0.5); LYMPH# 0.18 X1000 (1.2-3.4); MANUAL DIFF NEEDED? YES; MCH 31.4 PG (27-31); MCHC 35.1 g/dL (33-37); MCV 89.6 FL (81-99); MONO# 0.03 X1000 (0.11-0.59); MPV 10.7 FL (7.4-10.4); NEUT% 53.3 % (42.2-75.2); PLT 36 X1000 (130-400)
[2016-12-31] MEDS: XANAX PO PRN ×2 (02:28→20:58)
--- NOTE | 2016-12-31 03:31 | CONSULTATION ---
DATE OF CONSULTATION: 12/28/2016 REASON FOR CONSULTATION: Stage IV esophageal cancer. Patient known to Dr. Elkins. SOURCE: Information was obtained from the patient and the medical record. HISTORY OF PRESENT ILLNESS: Mr. Palomares is a pleasant, 66-year-old, man followed by Dr. Zack Elkins for a history of stage IV esophageal cancer. He is currently on palliative treatment with weekly carboplatin and Taxol who received cycle 1, day 14 on 12/26/2016. He was subsequently admitted to the hospital for neutropenic fever, sepsis, and right-sided pneumonia. He recently had intracranial gold beads implanted for radiation therapy on Saturday. He subsequently fell on Saturday night and Saturday during the day. He was then brought to the ER after suffering one additional fall. He reports a cough ongoing for several days. While he was in the ER, he possibly suffered a run of ventricular tachycardia. He was admitted to the hospital and started on nebulizers as well as IV Merrem and IV vancomycin. His white blood cell count today is 0.77. Platelet count is 72,000. PAST MEDICAL HISTORY: 1. Stage IV esophageal cancer with metastatic disease. Most recently, he has had progression including brain metastasis. On Saturday, he had gold beads inserted into the brain for radiation treatments. He is currently on palliative chemotherapy with carboplatin and Taxol. He received cycle 1, day 14 on 12/26/2016. 2. Coronary artery disease, status post percutaneous intervention with coronary artery stents placed between 1997 and 2002. 3. Type 2 diabetes mellitus. 4. Hyperlipidemia. PAST SURGICAL HISTORY: 1. Coronary artery stents placed several times between 1997 and 2002. 2. Gold beads implanted into the brain for radiation therapy in November of 2016. SOCIAL HISTORY: He used to smoke between 1-1/2 packs to 1 pack per day. He used to drink 1-2 drinks per week, 1-3 glasses of wine per week. Denies any environmental exposures. FAMILY HISTORY: His mother of cancer at age 46. He has a family history of brain cancer. His father at age 84. He has a family history of coronary artery disease and heart disease. ALLERGIES: No known food or drug allergies. MEDICATIONS: Albuterol inhaler 1 puff every 6 hours as needed for wheezing, Cymbalta 60 mg p.o. daily, Decadron 4 mg p.o. b.i.d., fentanyl patch 12 mcg per hour to change patch every 3 days, Restoril 30 mg p.o. at bedtime as needed for insomnia, Lyrica 50 mg 1 p.o. in the morning and 2 p.o. at bedtime, MS Contin 15 mg 1 p.o. b.i.d., [place] 10 mg/325 mg 1 p.o. every 4-6 hours as needed for pain, promethazine or Phenergan 25 mg p.o. every 6-8 hours as needed for nausea and vomiting, Remeron 30 mg p.o. at bedtime, Flomax 0.4 mg 1 p.o. daily, Xanax 2 mg 1 tablet every 8 hours as needed. In the hospital, he is currently on IV Merrem and IV vancomycin. REVIEW OF SYSTEMS: General: He reports weight loss, decreased appetite, fevers, chills, weakness, and fatigue. Skin: Denies rashes, itching, or bruising. Head: Denies headaches. Eyes: Denies blurry vision, double vision, change in visual roy or drainage. Ears: Denies abnormal hearing, ear pain, discharge, tinnitus, or vertigo. Nose: Denies discharge, bleeding, obstruction, or sensation of abnormal odors. Throat: Denies sore throat, change in voice, hoarseness, mouth pain, or dental problems. Breasts: Denies masses, discharge from the nipples, or breast pain. Cardiovascular: Denies chest pain or pressure, orthopnea, paroxysmal nocturnal dyspnea, peripheral edema, palpitations, or claudications. Respiratory: Reports cough and dyspnea on exertion. Reports intermittent wheezing. Denies hemoptysis. Gastrointestinal: Reports decreased appetite. Denies dysphagia, odynophagia, nausea, vomiting, hematemesis, diarrhea, hematochezia, melena, constipation, change in bowel or bladder habits, abdominal pain, or jaundice. Genitourinary: Denies discharge, lesions, dysuria, hematuria, urgency, hesitation, difficulty starting stream. Endocrine: Denies polyphagia, polydipsia, polyuria, goiter, or tremor. Allergy and Immunologic: Denies hayfever, eczema, sensitivity to seeds, pollens, or dander. Musculoskeletal: Denies muscle pain, swelling, stiffness, or limitation of range of motion. Neurologic: Reports generalized weakness, difficulty with balance, falls. Denies fainting, seizures, paralysis, tremor, involuntary movements, change in sensation, bowel or bladder incontinence. Psychiatric: Reports anxiety and insomnia. Denies memory problems, judgment problems, delusions, or hallucinations. PHYSICAL EXAMINATION: Vital Signs: T-max 100.5 degrees Fahrenheit, respirations 18, heart rate 90, blood pressure 114/82, SpO2 95% on 2 L per minute. Weight 159 pounds. Height is 5 feet 11 inches. General: Well-groomed, man resting in his hospital bed comfortably. No acute distress. He does appear mildly chronically ill. He is alone at the bedside. Skin: Pale. No cyanosis. Warm, dry, and intact. No rashes. Mild ecchymoses to bilateral upper extremities. No edema. HEENT: Head normocephalic, atraumatic. Eyes: Pupils equal, round, and reactive to light. Extraocular movements grossly intact. Nose: Mucosa pale, pink, and moist without visible discharge or bleeding. Throat and oropharynx: Mucous membranes pale, pink, and dry, and cracked with some scattered dried blood. No visible thrush. No visible ulcerations. Neck: Supple. Trachea midline. No jugular venous distention. Pulmonary: Unlabored. Coarse crackles throughout and diminished at bilateral bases. On oxygen at 6 L per minute via nasal cannula. Back: No paraspinal tenderness or deformities. No costovertebral angle tenderness. Cardiovascular: Regular rate and rhythm. S1, S2. No S3 or S4. GI: Soft, nontender, and nondistended. Hypoactive bowel sounds x4. : A Mclain in place. Clear elsa urine noted in the Mclain. Musculoskeletal: Moves all extremities equally, bilateral upper and lower extremities. Strength is fair, 4/5. Bilateral dorsalis pedis and posterior tibial pulses 1+. Neurologic: Alert and oriented x3. Cranial nerves 2-12 grossly intact. Gait not assessed because he was in the hospital bed. IMAGING AND DIAGNOSTICS: On 12/28/2016, chest x-ray, dense infiltrates in the right lung. On 12/27/2016, blood cultures x2 pending. CBC: White blood cell count of 0.77, red blood cell count 3.1, hemoglobin 9.8, hematocrit 29.1, platelet count 72,000. Sodium 135, potassium 4.3, chloride 102, CO2 21, BUN 24, creatinine 0.9, glucose 200. ASSESSMENT AND PLAN: 1. Stage IV esophageal cancer. Recently noted to have progression of the disease and new brain metastasis. He was started on Decadron 4 mg by mouth twice a day which has been continued in the hospital. He has been evaluated by Dr. Dotson on Saturday of this week. He had gold beads placed for radiation therapy. Radiation therapy to the brain has not been started yet. He is currently on palliative chemotherapy, status post cycle 1, day 14 of weekly carboplatin and Taxol which was given on 12/26/2016. However, unfortunately, he was not able to return to the clinic to receive his Neulasta injection. He experienced multiple falls at home and was subsequently admitted to the hospital. Cycle 1, day 1 of weekly carboplatin and Taxol was initiated on 12/11/2016. 2. Neutropenic fever and sepsis, neutropenia secondary to recent chemotherapy. T-max 100.5 degrees Fahrenheit. Blood cultures pending x2 from 12/27/2016. Chest x-ray shows right lobe infiltrates, consistent with pneumonia. He is currently on intravenous Merrem and intravenous vancomycin. Infectious disease has been consulted. We will start Granix 480 mcg subcutaneous daily with Zyrtec 10 mg by mouth twice a day. We will monitor CBC with differential daily. Continue to monitor the blood cultures. Continue to follow the chest x-ray. Monitor CBC daily with differential and discontinue Granix once white blood cell count is greater than or equal to 5000, and absolute neutrophil count is greater than or equal to 1500. 3. Right-sided pneumonia. He is currently on intravenous Merrem and intravenous vancomycin. He is also on nebulizers. Infectious disease has been consulted. He is on oxygen at 6 L per minute with an oxygen saturation of 95%. We will continue to follow chest x-ray. 4. Anemia secondary to chemotherapy. Hemoglobin of 9.8, hematocrit 29.1. Denies any signs or symptoms of clinical bleeding. We will continue to monitor CBC daily and transfuse as needed for hemoglobin less than or equal to 8 and hematocrit less than or equal to 24%. 5. Thrombocytopenia secondary to chemotherapy. Platelet count 72,000 today. We will continue to monitor and transfuse as needed for a platelet count less than or equal to 15,000, or active bleeding. Denies any current active bleeding. Continue to monitor CBC daily. 6. Code status. He is currently a [id number]. Given the nature of stage IV esophageal cancer, the nature of his treatment is currently palliative. We agree with his decision to be a [id number]. 7. access, status post left upper chest wall Port-A-Cath placement. Access patent without erythema, edema, drainage, or obvious signs of infection. Okay to use port for intravenous fluids and lab draws. We will continue to monitor and continue routine port care per institutional guidelines. 8. Head trauma following a fall. CT of the head was done in the hospital and was negative for any intracranial bleeding or abnormality. He will be on fall precautions while in the hospital. Suspect some of the weakness is secondary to the pneumonia and sepsis. Dictated by WERNER Baron for Zack Elkins MD cc: WERNER Baron MD Roger H. Moss Jr, MD
[2016-12-31] MEDS: MERREM 1 GM in NS 50 ML IV SCH ×3 (03:50→18:02)
[2016-12-31] MEDS: HUMALOG SUBQ SCH ×4 (06:09→20:59)
--- NOTE | 2016-12-31 06:33 | Diag Imaging Result Doc PS360 ---
CHEST-PORTABLE - 12/31/2016 INDICATION: dyspnea TECHNIQUE: COMPARISON: 12/30/2016 FINDINGS: Stable left chest port. Stable pulmonary vascular congestion and hazy interstitial infiltrates bilaterally. Heart size remains normal. No large effusion. IMPRESSION: No change from prior. Electronically signed by Judson Cm 12/31/2016 6:31 AM
[2016-12-31 06:59] LABS: HEMATOCRIT 26.5 % (42.0-52.0); HEMOGLOBIN 9.3 g/dL (14.0-18.0); IMM GRAN# 0.12 X1000 (0.0-0.04); IMM GRAN% 13.8 % (0.0-0.5); LYMPH# 0.23 X1000 (1.2-3.4); LYMPH% 26.4 % (20.5-51.1); MANUAL DIFF NEEDED? YES; MCH 31.6 PG (27-31); MCHC 35.1 g/dL (33-37); MCV 90.1 FL (81-99); MONO# 0.06 X1000 (0.11-0.59); MONO% 6.9 % (1.7-9.3); MPV 12.3 FL (7.4-10.4); NEUT% 52.9 % (42.2-75.2); PLT 42 X1000 (130-400); RBC 2.94 XMIL (4.7-6.1)
[2016-12-31 07:15] LABS: LYMPHS 26 % (21-51); MONO 14 % (1-9)
[2016-12-31] MEDS: GLUCOPHAGE PO SCH (07:58)
[2016-12-31] MEDS: ZYRTEC PO SCH ×2 (08:00→20:59)
[2016-12-31] MEDS: CRESTOR PO SCH (08:00)
[2016-12-31] MEDS: DECADRON PO SCH ×2 (08:00→20:59)
[2016-12-31] MEDS: MS CONTIN PO SCH ×2 (08:00→20:57)
[2016-12-31] MEDS: WELLBUTRIN PO SCH (08:00)
[2016-12-31] MEDS: GRANIX SUBQ SCH (08:25)
[2016-12-31] MEDS ORDERED: NS 500 ML IV SCH (10:45)
[2016-12-31] MEDS: VANCOMYCIN 1 GM/NS 1 GM/250 ML IVPB IV SCH ×2 (11:33→22:04)
--- NOTE | 2016-12-31 15:31 | PROGRESS NOTE ---
DATE: 12/31/2016 SUBJECTIVE: ICU patient covering for Dr. Patel admitted to the hospital for sepsis syndrome from pneumonia with pancytopenia. He has a history of esophageal cancer with metastatic brain, seen by Dr. Dotson and Dr. Elkins. For last 24 hours, he is beginning to improve. He is more alert. Trouble swallowing. REVIEW OF SYSTEMS: None reported. EXAMINATION: Vitals: Temperature is 97 degrees, respirations 18, blood pressure 128/79, 100% on room air. Input and output: Positive 365 mL. HEENT: Atraumatic, normocephalic. Pupils equal, reactive to light. TMs are normal. Nose and throat within normal limits. Neck: Supple. No lymphadenopathy. No goiter. Chest: Bilateral air entry. Decreased rhonchi. Heart: Sounds are regular. Abdomen: Belly is soft, nontender. Good bowel sounds. Extremities: No peripheral edema or cyanosis. No obvious neurological deficits noted. INVESTIGATIONS: CBC: White cell count 0.8, hematocrit 26, platelets 42,000. SMA7 was normal. Chest x-ray is improving pneumonia in the right side. ASSESSMENT AND PLAN: 1. Stage IV esophageal cancer, status post carboplatin and Taxol therapy. 2. Metastatic brain cancer. As per Dr. Elkins, seen by Dr. Dotson. 3. Pancytopenia. Continue hematological support. Hematocrit 26, we will give 1 unit of transfusion today. 4. Pneumonia, most likely aspiration. Improving. Continue on antibiotics which includes IV vancomycin, IV meropenem 1 g q.8 hours. 5. Brain metastasis, on Decadron 4 mg p.o. b.i.d. 6. Intermittent dysphagia due to esophageal cancer. Tolerating the liquids well. 7. Hypotension. Off vasopressors. 8. Living will, Do Not Resuscitate. 9. Nonsustained ventricular tachycardia. Stable. I discussed the plan of care with the patient and he is anxious to get out of the ICU and will follow up. LEVEL OF DOCUMENTATION: 25 minutes. cc: MD Tony Matamoros Jr, MD
--- NOTE | 2016-12-31 17:09 | PROGRESS NOTE ---
DATE: 12/31/2016 PRESENT ILLNESS: The patient has pneumonia and pancytopenia. MEDICATIONS: The patient is on meropenem and vancomycin. This is the 3rd day of treatment with both agents. PHYSICAL EXAMINATION: Vital Signs: Temperature 97.5 degrees, pulse 69, respirations 19, blood pressure 115/76. General: This is a somewhat ill-appearing, elderly male. He is in no acute distress. Lungs: Clear to auscultation. Cardiovascular: Regular heart rate. Abdomen: Soft and nontender. Thorax: Patient has a Port-A-Cath present on the left side. The site is not swollen or red. LAB AND X-RAY: CBC shows a white count of 870, hemoglobin 9.3, platelet count 42,000. Blood cultures are stable. Chest x-ray shows stable bilateral infiltrates. ASSESSMENT AND PLAN: Patient has pneumonia and pancytopenia. My plan is to continue with the current antibiotics. COMORBIDITIES: Metastatic esophageal cancer, gastroesophageal reflux disease and diabetes mellitus. cc: MD Tony Kohler Jr, MD
--- NOTE | 2016-12-31 19:07 | PROGRESS NOTE ---
DATE: 12/31/2016 CHIEF COMPLAINT: Chills, weakness, anorexia. SUBJECTIVE: The patient states that he is not in any pain. Appetite has not improved. He is not short of breath. Rhythm is regular, sinus. OBJECTIVE: Blood pressure is 116/74, temperature 97.3, pulse 67, respirations 17. He is awake, alert, in no distress, chronically ill. Multiple bruises on the arms. He has a Port-A-Cath on the left side, about to get a unit of blood. The patient is in no distress. HEENT is unremarkable. Chest diminished breath sounds in the right lung field. Heart sounds are regular and rhythmic. I do not hear any gallop or murmur. Abdomen is nontender. Extremities showed no edema. Neurologic: Follows commands. Moves all 4 extremities. DIAGNOSTIC DATA: Blood work shows white cell count is 870, hemoglobin 9.3, hematocrit 26.5, platelet count is 42,000. Electrolytes have not been drawn today. His BUN was slightly up. His creatinine was normal the last time it was checked on 12/28/2016. Last chest x-ray was done today, and it shows no change from prior, pulmonary vascular congestion, stable, hazy interstitial infiltrates bilaterally. Heart size remains normal. IMPRESSION: 1. The patient presented with sepsis syndrome associated with pancytopenia. This appears to be improving. 2. Nonsustained ventricular tachycardia/sinus tachycardia with aberration. This has improved. 3. Severe coronary artery disease, previous coronary intervention. 4. Esophageal cancer with metastasis. RECOMMENDATIONS: At this point in time, we will continue to observe. Clinically from the cardiac viewpoint, he appears to be stable. We may want to do a followup on his troponin levels in the morning and also a chemistry panel and will get an EKG. cc: MD Tony Davila Jr, MD
[2016-12-31] MEDS: CYMBALTA PO SCH (20:59)
[2016-12-31] MEDS: REMERON PO SCH (20:59)
[2016-12-31] MEDS: DILAUDID IM PRN (22:01)
[2017-01-01] MEDS: MERREM 1 GM in NS 50 ML IV SCH ×3 (03:34→18:09)
[2017-01-01] MEDS: NORCO-7.5 PO PRN (03:45)
[2017-01-01 05:43] LABS: BASO% 0.8 % (0.0-0.8); EOS# 0.01 X1000 (0.0-0.7); EOS% 0.8 % (0.0-10.0); HEMATOCRIT 29.5 % (42.0-52.0); HEMOGLOBIN 10.3 g/dL (14.0-18.0); IMM GRAN# 0.13 X1000 (0.0-0.04); IMM GRAN% 10.1 % (0.0-0.5); LYMPH# 0.35 X1000 (1.2-3.4); LYMPH% 27.1 % (20.5-51.1); MANUAL DIFF NEEDED? YES; MCH 30.9 PG (27-31); MCHC 34.9 g/dL (33-37); MCV 88.6 FL (81-99); MONO# 0.16 X1000 (0.11-0.59); MONO% 12.4 % (1.7-9.3); MPV 12.1 FL (7.4-10.4); NEUT% 48.8 % (42.2-75.2); PLT 42 X1000 (130-400); RBC 3.33 XMIL (4.7-6.1)
[2017-01-01 05:48] LABS: AGAP 9; BUN 28 mg/dL (8-22); CHLORIDE 100 mmol/L (98-107); COSMO 276; MAGNESIUM 1.4 mg/dL (1.5-2.7); POTASSIUM 4.4 mmol/L (3.5-5.1); SODIUM 134 mmol/L (136-145); TCO2 25 mmol/L (25-35)
[2017-01-01] MEDS: HUMALOG SUBQ SCH ×4 (06:11→20:12)
--- NOTE | 2017-01-01 06:27 | Diag Imaging Result Doc PS360 ---
EXAM: CHEST-PORTABLE HISTORY: dyspnea TECHNIQUE: Portable COMPARISON: 12/31/2016 FINDINGS: No change in the left subclavian portacatheter. No pneumothorax. Heart is not enlarged. No pleural effusions identified. Mild increased interstitial markings in the right lung and left base. IMPRESSION: No interval improvement. Electronically signed by Miguel Arceo 01/01/2017 6:24 AM
[2017-01-01 07:40] LABS: LYMPHS 20 % (21-51); MONO 10 % (1-9)
[2017-01-01] MEDS: GLUCOPHAGE PO SCH (08:33)
[2017-01-01] MEDS: DECADRON PO SCH ×2 (08:33→20:11)
[2017-01-01] MEDS: WELLBUTRIN PO SCH (08:33)
[2017-01-01] MEDS: CRESTOR PO SCH (08:33)
[2017-01-01] MEDS: MS CONTIN PO SCH ×2 (08:33→20:11)
[2017-01-01] MEDS: GRANIX SUBQ SCH (08:48)
--- NOTE | 2017-01-01 09:10 | PROGRESS NOTE ---
DATE: 01/01/2017 SUBJECTIVE: Mr. Palomares reports that he is feeling better today. He seems like he is in good spirits. OBJECTIVE/VITAL SIGNS: Temperature 97.9 degrees, heart rate 69, respirations 16 , blood pressure 110/71, O2 saturation 98% on room air. LABORATORY: White blood cell 1.29, hemoglobin 10.3, hematocrit 29.5, platelets 42. ANC 0.63. Sodium 134, potassium 4.4, chloride 106, CO2 25, BUN 28, creatinine 0.5, glucose 140. PHYSICAL EXAM: CV: Regular rate and rhythm. S1, S2. Respiratory: Chest is clear to auscultation bilaterally with normal respiratory effort. Abdomen: Soft, nontender, nondistended. Positive bowel sounds. Extremities: Patient has no bilateral extremity edema noted. ASSESSMENT AND PLAN: 1. Stage IV esophageal cancer. Patient is receiving treatment, but treatment is currently on hold while his acute issues resolve. 2. Neutropenic fever. Improving. Patient is currently afebrile. His ANC is slowly improving. Continue daily Granix. Continue intravenous antibiotics. 3. Pancytopenia. Monitor counts closely. Hemoglobin improving. Platelets overall stable. Transfuse as needed. No transfusions are needed at this time. 4. Pneumonia. Continue intravenous antibiotics. Oxygen saturation is good on room air at 96%. Dictated by LATESHA Bautista for Letty Vogel MD cc: MD Tony Estrella Jr, MD I have seen and examined Mr. Palomares and agree with above A/P. Counts and fever are improving. Monitor on Granix and antibiotics. Letty Vogel MD [facility]
[2017-01-01] MEDS: ZYRTEC PO SCH ×2 (09:34→20:12)
[2017-01-01] MEDS: VANCOMYCIN 1 GM/NS 1 GM/250 ML IVPB IV SCH (10:33)
--- NOTE | 2017-01-01 12:05 | PROGRESS NOTE ---
DATE: 01/01/2017 Mr. Paolmares is doing better. His vital signs are stable. Electrolytes are normal. BUN 28, creatinine 0.5. His white count is 1.29, hemoglobin is 10.3. Vital signs are stable. We will continue with the current management on him. -5 cc: MD Tony Wood Jr, MD
[2017-01-01] MEDS: DILAUDID IM PRN ×2 (14:46→21:42)
[2017-01-01] MEDS ORDERED: MAGNESIUM SULFATE 4 GM/S.W.I. 4 GM/100 ML IVPB IV ONE (15:08)
--- NOTE | 2017-01-01 16:57 | PROGRESS NOTE ---
DATE: 01/01/2017 CHIEF COMPLAINT: Chest discomfort and irregular heartbeat. SUBJECTIVE: The patient reported one episode of chest discomfort this afternoon. A 12 lead EKG was done STAT at 2:40 p.m. and it showed no significant ischemic changes. The patient says that the pain has subsided. He is not more short of breath than usual. No other new symptoms. He does not have a great appetite at this time. OBJECTIVE: Vital signs: Blood pressure is 115/76, temperature 97.3, pulse 65, and respirations 20. General: He is awake and appears to be chronically ill. HEENT: Unremarkable. Chest: Diminished breath sounds bilaterally with some rhonchi. Cardiovascular: Heart sounds are regular and rhythmic. I do not hear any gallop or murmur. Abdomen: His abdomen is nontender and soft. No hepatomegaly. Extremities: The extremities show no edema. Pulses are present. Neurological: He moves all extremities and follows commands. LABORATORY DATA: Blood work: His white cell count is down at 1,290. Hemoglobin is 10.3. Platelet count is 42,000. Sodium is 134, potassium 4.4, BUN 28, and creatinine 0.5. Magnesium is 1.4. Troponin level has been checked and is 0.016. IMPRESSION: 1. Patient who presented with a neutropenic fever. He is currently receiving chemotherapy for metastatic esophageal cancer. 2. History of severe coronary artery disease with previous intervention with angioplasty and a stent. Today he has developed one episode of chest pain which has been short lasting. No ischemic change is noted on the EKG. 3. History of diabetes mellitus type and pneumonia. His most recent chest x-ray from 01/01/2017 shows that there are mild increased interstitial markings in the right lung and left base. There has been no change in the pattern of the chest x-ray. RECOMMENDATIONS: At this point in time from a cardiology viewpoint I would follow with some conservative approach with narcotics and nitroglycerin as needed. At this point in time he is really not a candidate for any extraordinary measures given his advanced metastatic disease and neutropenic fever with lung involvement. As I said, his EKG does not show any major changes. We will follow him along. cc: MD Tony Davila Jr, MD
--- NOTE | 2017-01-01 18:46 | PROGRESS NOTE ---
DATE: 01/01/2017 PRESENT ILLNESS: The patient has pneumonia and pancytopenia. MEDICATIONS: This is the 4th day of treatment with a combination of vancomycin and meropenem. PHYSICAL EXAMINATION: Vital Signs: Temperature is 97.8 degrees, pulse 75, respirations 20, blood pressure 108/72. General: This is a fairly healthy-appearing, elderly male. He is not in any acute distress. He is not complaining of any difficulty breathing or pain. Lungs: Clear to auscultation. Cardiovascular: Regular heart rate. Abdomen: Soft and nontender. Thorax: Patient has a Port-A-Cath on the left side. The site is not erythematous or swollen. Legs: No edema. LABORATORY AND X-RAY: CBC shows that the white count is increased to 1290, hemoglobin 10.3, and platelet count 42,000. Blood cultures are sterile. Chest x-ray shows increased interstitial markings bilaterally. ASSESSMENT AND PLAN: 1. Patient has pneumonia and pancytopenia. My plan is to continue his current antibiotics. This is the 4th day of treatment with both of them. 2. Comorbidities: Metastatic esophageal cancer. Gastroesophageal reflux disease and diabetes mellitus. cc: MD Tony Kohler Jr, MD
[2017-01-01] MEDS: XANAX PO PRN (20:10)
[2017-01-01] MEDS: CYMBALTA PO SCH (20:12)
[2017-01-01] MEDS: REMERON PO SCH (20:15)
[2017-01-02] MEDS: VANCOMYCIN 1 GM/NS 1 GM/250 ML IVPB IV SCH (01:35)
[2017-01-02] MEDS: MERREM 1 GM in NS 50 ML IV SCH ×3 (03:10→18:49)
--- NOTE | 2017-01-02 05:19 | EKG Report ---
Test Performed on : 01/01/2017 2:40:01 PM Test Reason : chest pressure Blood Pressure : / mmHG Vent. Rate : 070 BPM Atrial Rate : 070 BPM P-R Int : 156 ms QRS Dur : 094 ms QT Int : 412 ms P-R-T Axes : 058 -87 059 degrees QTc Int : 444 ms Normal sinus rhythm. with sinus arrhythmia. Left axis deviation Pulmonary disease pattern Nonspecific ST and T wave abnormality Abnormal ECG When compared with ECG of 01-JAN-2017 06:34, (Unconfirmed) Borderline criteria for Anterior infarct are no longer present Nonspecific T wave abnormality no longer evident in Inferior leads Nonspecific T wave abnormality has replaced inverted T waves in Lateral leads Confirmed by Prabhakar Lacey MD ([id number]) on 01/02/2017 8:21:15 AM
--- NOTE | 2017-01-02 05:20 | EKG Report ---
Test Performed on : 01/01/2017 06:34:49 AM Test Reason : ASHD h/o PCI Blood Pressure : / mmHG Vent. Rate : 067 BPM Atrial Rate : 067 BPM P-R Int : 152 ms QRS Dur : 092 ms QT Int : 424 ms P-R-T Axes : 032 -42 -63 degrees QTc Int : 448 ms Normal sinus rhythm. with sinus arrhythmia. Left axis deviation Possible Anterior infarct (cited on or before 27-DEC-2016) ST \T\ T wave abnormality, consider lateral ischemia Abnormal ECG When compared with ECG of 27-DEC-2016 18:25, (Unconfirmed) Vent. rate has decreased BY [address] now depressed in Anterior leads Nonspecific T wave abnormality, worse in Inferior leads T wave inversion now evident in Anterolateral leads Confirmed by Prabhakar Lacey MD ([id number]) on 01/02/2017 8:19:56 AM
[2017-01-02 05:24] LABS: EOS# 0.02 X1000 (0.0-0.7); EOS% 0.5 % (0.0-10.0); HEMATOCRIT 30.5 % (42.0-52.0); HEMOGLOBIN 10.6 g/dL (14.0-18.0); IMM GRAN# 0.48 X1000 (0.0-0.04); IMM GRAN% 12.1 % (0.0-0.5); LYMPH# 0.75 X1000 (1.2-3.4); LYMPH% 18.8 % (20.5-51.1); MCH 30.9 PG (27-31); MCHC 34.8 g/dL (33-37); MCV 88.9 FL (81-99); MONO# 0.18 X1000 (0.11-0.59); MONO% 4.5 % (1.7-9.3); MPV 11.9 FL (7.4-10.4); NEUT% 62.1 % (42.2-75.2); PLT 46 X1000 (130-400); RBC 3.43 XMIL (4.7-6.1)
[2017-01-02 05:35] LABS: AGAP 9; BUN 28 mg/dL (8-22); CALCIUM 7.7 mg/dL (8.8-10.2); CHLORIDE 98 mmol/L (98-107); COSMO 273; POTASSIUM 4.4 mmol/L (3.5-5.1); SODIUM 133 mmol/L (136-145); TCO2 26 mmol/L (25-35)
[2017-01-02] MEDS: HUMALOG SUBQ SCH ×4 (06:53→21:00)
[2017-01-02 06:54] LABS: MANUAL DIFF NEEDED? NO
--- NOTE | 2017-01-02 08:33 | PROGRESS NOTE ---
DATE: 01/02/2017 SUBJECTIVE: The patient says he is not hurting anywhere. He is feeling better. Apparently had some chest pain yesterday. OBJECTIVE: Vital Signs: Temperature is 97.9 degrees Fahrenheit, pulse 76 and regular, respirations 14 and unlabored, blood pressure 102/64, O2 saturation on 2 L per nasal cannula is 92%. HEENT: Normocephalic. EOMs intact. PERRLA. Throat clear. Lungs: Sound clear to auscultation and percussion without rhonchi, rales, or wheezes. Heart: Regular rate and rhythm without murmurs, gallops, or friction rubs at this time. Abdomen: Soft. Active bowel sounds. No organomegaly or tenderness. Neurological: Examination essentially normal. The patient may be a little confused. He is very muted compared to his usual state when he was out of the hospital. Laboratory Data: White count had been very low initially and it is now up to 3980, hemoglobin is 10.6, platelet count still low at 46,000. CMP is essentially normal except for a sodium of 133, calcium is a little low at 7.7. Blood cultures were negative. Chest x-ray shows some mild increased interstitial markings in the right and left lung bases with no interval improvement. ASSESSMENT: 1. Pancytopenia. 2. Metastatic esophageal cancer with brain metastasis. 3. Pneumonia. 4. Chest pain. 5. Known coronary artery disease. 6. Questionable tachyarrhythmia, now resolved. 7. Slightly elevated troponin, question about myocardial infarction with EKG changes. Patient's condition does not really allow for intervention. PLAN: We will continue care. Prognosis is poor. cc: Tony Patel Jr, MD
[2017-01-02 09:17] LABS: BASO% 2.3 % (0.0-0.8); EOS# 0.01 X1000 (0.0-0.7); EOS% 0.2 % (0.0-10.0); HEMATOCRIT 33.4 % (42.0-52.0); HEMOGLOBIN 11.8 g/dL (14.0-18.0); IMM GRAN# 0.54 X1000 (0.0-0.04); IMM GRAN% 11.3 % (0.0-0.5); LYMPH# 0.87 X1000 (1.2-3.4); LYMPH% 18.2 % (20.5-51.1); MANUAL DIFF NEEDED? YES; MCH 31.6 PG (27-31); MCHC 35.3 g/dL (33-37); MCV 89.3 FL (81-99); MONO# 0.28 X1000 (0.11-0.59); MONO% 5.9 % (1.7-9.3); MPV 11.8 FL (7.4-10.4); NEUT% 62.1 % (42.2-75.2); PLT 54 X1000 (130-400); RBC 3.74 XMIL (4.7-6.1)
[2017-01-02] MEDS: WELLBUTRIN PO SCH (09:17)
[2017-01-02] MEDS: MS CONTIN PO SCH ×2 (09:18→21:01)
[2017-01-02] MEDS: CRESTOR PO SCH (09:18)
[2017-01-02] MEDS: ZYRTEC PO SCH ×2 (09:19→21:01)
[2017-01-02] MEDS: DECADRON PO SCH ×2 (09:19→21:01)
[2017-01-02] MEDS: GLUCOPHAGE PO SCH (09:19)
[2017-01-02 09:31] LABS: BANDS 10 % (0-1); LYMPHS 12 % (21-51); MONO 10 % (1-9)
[2017-01-02] MEDS: GRANIX SUBQ SCH (09:55)
[2017-01-02] MEDS: XANAX PO PRN (12:58)
--- NOTE | 2017-01-02 13:12 | Diag Imaging Result Doc PS360 ---
CT THORAX W/CONTRAST - 01/02/2017 INDICATION: pulmonary mets TECHNIQUE: A CT dose reduction protocol was used. COMPARISON: 11/15/2016, 01/26/2016 FINDINGS: There are new ill-defined multilobar predominantly interstitial infiltrates involving all lobes of the right lung. There is progression in the pleural effusions, but the bilateral pleural effusions are still small. There is grossly stable, extensive circumferential wall thickening of the lower esophagus. This is over fairly long segment. There is a left chest port in good position stable from prior. There is new or more extensive cavitation inside of all of the major pulmonary nodules present bilaterally. No new nodules. There is some worsening mucous plugging of segmental airways in the left lower lobe. There are several hypodense masses in the liver similar to the recent PET CT. These measure up to 3.4 cm. The spleen is slightly enlarged. There is trace ascites. Most of the splenic artery does not demonstrate any contrast inside of it. This artery is very heavily diseased. The more distal branches are patent. There is concern for proximal arterial obstruction of the splenic artery with collateral filling of distal branches. Bony structures are intact. IMPRESSION: 1. New multilobar predominantly interstitial infiltrates throughout the right lung. Concerning for pneumonia, particularly atypical pneumonia. Viral pneumonia is also suggested. 2. Small bilateral pleural effusions increasing from prior. 3. Increasing cavitation within the scattered pulmonary nodules. No new nodules. 4. Stable masses in the distal esophagus and liver. 5. 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 6. Mucus plugging of left lower lobe segmental bronchi. Electronically signed by Judson Cm 01/02/2017 1:09 PM
[2017-01-02] MEDS: VANCOMYCIN 1.2 GM in NS 250 ML IV SCH (15:57)
--- NOTE | 2017-01-02 19:13 | PROGRESS NOTE ---
DATE: 01/02/2017 PRESENT ILLNESS: The patient has pancytopenia which is improving and pneumonia which unfortunately radiographically is not improving. MEDICATIONS: This is day 5 of treatment with a combination of meropenem and vancomycin. PHYSICAL EXAMINATION: Vital Signs: Temperature is 97.3, pulse 94, respirations 18, blood pressure 111/72. Generally: This is an ill-appearing elderly male. He is not in any acute distress. Lungs: Clear to auscultation. Cardiovascular: Regular heart rate. Abdomen: Soft and nontender. Thorax: Patient has a Port-A-Cath present on the left side. The site is not tender or erythematous. LAB AND X-RAY: Chest x-ray shows no infiltrates in the right lung and increased cavitation of the nodules. CBC shows a white count of 3980, hemoglobin 10.6, and platelet count 46,000. Creatinine is 0.5. GFR is greater than 60. Vancomycin level was 12. ASSESSMENT AND PLAN: Patient has pneumonia and pancytopenia. My plan is to continue with the patient's current antibiotics. COMORBIDITIES: He has metastatic esophageal cancer. He has gastroesophageal reflux disease and diabetes. cc: MD Tony Kohler Jr, MD
[2017-01-02] MEDS: DILAUDID IM PRN (19:28)
[2017-01-02] MEDS: REMERON PO SCH (21:01)
[2017-01-02] MEDS: CYMBALTA PO SCH (21:01)
[2017-01-03] MEDS: VANCOMYCIN 1.2 GM in NS 250 ML IV SCH ×2 (02:30→15:10)
[2017-01-03] MEDS: MERREM 1 GM in NS 50 ML IV SCH ×3 (02:30→18:41)
[2017-01-03] MEDS: DILAUDID IM PRN ×3 (05:10→17:50)
[2017-01-03 06:27] LABS: BASO% 1.7 % (0.0-0.8); EOS# 0.02 X1000 (0.0-0.7); EOS% 0.2 % (0.0-10.0); HEMATOCRIT 31.5 % (42.0-52.0); IMM GRAN# 1.47 X1000 (0.0-0.04); IMM GRAN% 12.7 % (0.0-0.5); LYMPH# 1.11 X1000 (1.2-3.4); LYMPH% 9.6 % (20.5-51.1); MANUAL DIFF NEEDED? YES; MCH 31.3 PG (27-31); MCHC 34.9 g/dL (33-37); MCV 89.5 FL (81-99); MONO# 1.15 X1000 (0.11-0.59); MONO% 9.9 % (1.7-9.3); MPV 12.4 FL (7.4-10.4); NEUT% 65.9 % (42.2-75.2); PLT 60 X1000 (130-400); RBC 3.52 XMIL (4.7-6.1)
[2017-01-03 06:33] LABS: AGAP 9; BUN 24 mg/dL (8-22); CHLORIDE 98 mmol/L (98-107); COSMO 270; POTASSIUM 4.3 mmol/L (3.5-5.1); SODIUM 133 mmol/L (136-145); TCO2 26 mmol/L (25-35)
[2017-01-03] MEDS: HUMALOG SUBQ SCH ×3 (06:35→16:46)
[2017-01-03 07:18] LABS: BANDS 6 % (0-1); LYMPHS 4 % (21-51); MONO 2 % (1-9)
[2017-01-03] MEDS ORDERED: NS 1,000 ML IV SCH (08:42)
[2017-01-03] MEDS: MS CONTIN PO SCH ×2 (08:42→21:04)
[2017-01-03] MEDS: WELLBUTRIN PO SCH (08:46)
[2017-01-03] MEDS: DECADRON PO SCH ×2 (08:46→21:04)
[2017-01-03] MEDS: CRESTOR PO SCH (08:46)
[2017-01-03] MEDS: GLUCOPHAGE PO SCH (08:46)
--- NOTE | 2017-01-03 09:16 | PROGRESS NOTE ---
DATE: 01/03/2017 SUBJECTIVE: The patient says he feels better. He had a CT scan of his chest yesterday that showed worsening of the pneumonia and mucous plugging. However, this morning, he says he is breathing better. OBJECTIVE: Vital signs: Blood pressure of only 94/61, respirations 15, pulse 70, temp 97.7 degrees Fahrenheit. Oxygen on room air is 96%. HEENT: Normocephalic, EOMs intact. PERRLA. Throat clear. Lungs: Lungs have rales in the right base. Heart: Regular rate and rhythm without murmurs, gallops, or friction rubs. Abdomen: Soft, active bowel sounds, no organomegaly or tenderness. Neurological: Cranial nerves 2-12 intact grossly. Sensory and motor intact. The patient is more alert today. ASSESSMENT: 1. Esophageal cancer with metastasis and cavitary lesions in the lung. 2. Pneumonia. 3. Mucous plugging. 4. Hypotension. PLAN: The patient is clinically doing a little bit better, but earlier this morning, his blood pressure was still low at 86/57, and it has come up a little bit. His CT scan of his chest showed worsening of the pneumonia with a more diffuse pattern and more cavitation in the cancer. Will consult Pulmonology to see if we can help with pulmonary toilet and perhaps help his pneumonia a little bit better, especially with the mucous plugging. cc: Tony Patel Jr, MD
--- NOTE | 2017-01-03 10:13 | PROGRESS NOTE ---
DATE: 12/27/2016 ADDENDUM: It should be noted that patient also had a pancytopenia that I did not list before. His white count is now up to 11,590, hemoglobin 11.0, hematocrit 31.7. BUN is 24, creatinine is 0.5. He has not been eating or drinking very well. We will start some IV fluids. He may be a little dehydrated which could account for the mucous plugging and for some of his hypotension. cc: Tony Patel Jr, MD
[2017-01-03] MEDS: DUONEB (A & A) INH PRN (11:16)
[2017-01-03] MEDS: NS 1,000 ML IV SCH ×2 (11:39→15:10)
--- NOTE | 2017-01-03 12:00 | CONSULTATION ---
DATE OF CONSULTATION: 01/03/2017 REQUESTING PHYSICIAN: Dr. Tony Patel Jr. REASON FOR CONSULTATION: Pneumonia and mucus plugging. HISTORY OF PRESENT ILLNESS: Mr. Palomares is a 66-year-old white male with prior tobacco history, who was diagnosed with esophageal cancer in 2014. The patient subsequently had metastatic disease to the liver, the lungs, and to the brain. By his report, he has had radioactive seeds placed in the brain. The patient fell twice while at home and presented to the hospital on 12/27/2016 and workup revealed a pneumonia and pancytopenia. CT scan of the brain revealed no evidence of acute intracranial hemorrhage, but he did have an area of subgaleal hematoma. The patient's white blood count was 0.62 on arrival, and he has had some thrombocytopenia. His white blood count is recovering and is 11.6 today. His platelet count has increased to 60,000. He does report cough productive of green-tinged sputum. PAST MEDICAL HISTORY: Problem List: 1. Advanced metastatic esophageal cancer, on palliative chemotherapy as per above. 2. Diabetes mellitus. 3. Dyslipidemia. 4. Hypertension. 5. Status post appendectomy. 6. Remote left knee arthroscopic surgery. 7. Coronary artery disease with prior coronary artery stent placement. SOCIAL HISTORY: Prior tobacco use. He continues to drink occasional alcoholic beverage. FAMILY HISTORY: Positive for heart disease and brain cancer. REVIEW OF SYSTEMS: Notable for decreased appetite, purulent sputum production, generalized weakness. PHYSICAL EXAMINATION: General: Exam reveals a chronically ill-appearing, white male, in no distress. Vital Signs: BP 116/71, heart rate 77, respiration rate 16 and unlabored, HEENT: Pupils are equal and reactive. Oropharynx is clear. Neck: Supple. Chest: Reveals decreased breath sounds bilaterally with scattered rhonchi. Cardiac: Regular rate. Normal S1, normal S2. Abdomen: Soft without hepatosplenomegaly. Extremities: Without edema. LABORATORIES: White blood count 11.6, hemoglobin 11.0, platelet count 60,000. CT scan of the thorax reveals small bilateral effusions, multiple bilateral pulmonary nodules which were present on prior CT scans but are undergoing increased cavitation, mass in the distal esophagus and the liver, mucous plugging of the left lower lobe segmental bronchi, patchy pneumonia in the right lung. IMPRESSION: A 68-year-old with advanced esophageal cancer who presents with pancytopenia and pneumonia. The patient has small bilateral pleural effusions and audible rhonchi on examination and is producing cough productive of green-stained sputum. The area on the CT scan might represent a viral pneumonitis but could be an atypical presentation for bacterial pneumonitis given his lack of white blood cells. The area also would be consistent with an alveolar hemorrhage which would also be in the differential given his thrombocytopenia. He should improve with continued antibiotics and recovery of his white blood cell. At this juncture, we will collect a sputum for culture and sensitivity and will augment his bronchial hygiene with scheduled nebulizer treatments and Mucomyst. RECOMMENDATIONS: 1. Collect sputum for culture and sensitivity. The respiratory therapist is aware and she will induce a sputum for cultures. 2. Augment bronchial hygiene as outlined above. 3. Patient appears to be stable for transfer to the floor. cc: MD Tony Domingo Jr, MD
[2017-01-03] MEDS: DUONEB (A & A) INH SCH ×3 (15:50→23:06)
[2017-01-03] MEDS: NORCO-7.5 PO PRN (18:40)
[2017-01-03] MEDS: MUCOMYST 20% INH SCH (19:16)
[2017-01-03] MEDS: XANAX PO PRN (19:36)
[2017-01-03] MEDS: CYMBALTA PO SCH (21:04)
[2017-01-03] MEDS: REMERON PO SCH (21:04)
[2017-01-04] MEDS: MERREM 1 GM in NS 50 ML IV SCH ×3 (03:00→17:46)
[2017-01-04] MEDS: NS 1,000 ML IV SCH ×3 (03:01→20:57)
[2017-01-04] MEDS: DUONEB (A & A) INH SCH ×6 (03:13→23:25)
[2017-01-04] MEDS: VANCOMYCIN 1.2 GM in NS 250 ML IV SCH ×2 (03:31→14:52)
[2017-01-04] MEDS: HUMALOG SUBQ SCH ×4 (06:00→15:52)
[2017-01-04 06:54] LABS: AGAP 9; BUN 21 mg/dL (8-22); CALCIUM 7.9 mg/dL (8.8-10.2); CHLORIDE 99 mmol/L (98-107); COSMO 274; POTASSIUM 4.7 mmol/L (3.5-5.1); SODIUM 133 mmol/L (136-145); TCO2 25 mmol/L (25-35)
[2017-01-04] MEDS: MUCOMYST 20% INH SCH ×2 (08:02→20:00)
[2017-01-04] MEDS: CRESTOR PO SCH (08:30)
[2017-01-04] MEDS: WELLBUTRIN PO SCH (08:30)
[2017-01-04] MEDS: MS CONTIN PO SCH ×2 (08:31→20:58)
[2017-01-04] MEDS: DECADRON PO SCH ×3 (08:31→20:58)
[2017-01-04] MEDS: GLUCOPHAGE PO SCH (08:31)
[2017-01-04 08:34] LABS: BASO% 0.7 % (0.0-0.8); EOS# 0.01 X1000 (0.0-0.7); EOS% 0.1 % (0.0-10.0); HEMATOCRIT 30.8 % (42.0-52.0); HEMOGLOBIN 10.8 g/dL (14.0-18.0); IMM GRAN# 1.41 X1000 (0.0-0.04); IMM GRAN% 8.6 % (0.0-0.5); LYMPH# 0.96 X1000 (1.2-3.4); LYMPH% 5.8 % (20.5-51.1); MANUAL DIFF NEEDED? YES; MCH 31.5 PG (27-31); MCHC 35.1 g/dL (33-37); MCV 89.8 FL (81-99); MONO% 10.3 % (1.7-9.3); MPV 12.1 FL (7.4-10.4); NEUT% 74.5 % (42.2-75.2); PLT 64 X1000 (130-400); RBC 3.43 XMIL (4.7-6.1)
[2017-01-04 09:01] LABS: BANDS 20 % (0-1); LYMPHS 2 % (21-51)
--- NOTE | 2017-01-04 09:41 | PROGRESS NOTE ---
DATE: 01/04/2017 SUBJECTIVE: Patient says he is feeling better. He feels like he is breathing a little better. He is slow with this talk. He does have brain metastasis. He still looks tired. His CT scan had shown mucus plugging and diffuse pneumonia. I appreciate Dr. Graham seeing the patient and helping with his care as well as the other consultants. OBJECTIVE: Blood pressure is 98/68; earlier, it was 128/82. Respirations 12, pulse 84, temperature 98.1 degrees Fahrenheit. HEENT: Normocephalic. EOMs intact. PERRLA. Throat clear. Lungs are clear to auscultation and percussion without rhonchi, rales, or wheezes at this time. Heart has regular rate and rhythm without murmurs, gallops, or friction rubs. Abdomen soft. Active bowel sounds. No organomegaly or tenderness. White count is up to 16,460. Hemoglobin 10.8, platelet count 64,000 which is an improvement. BUN is 21, creatinine is 0.5. Blood sugar is 180. IV fluids have been decreased from 125 mL an hour down to 75 mL an hour. ASSESSMENT: 1. Stage 4 esophageal cancer with metastasis to lungs and brain. 2. Pneumonia. 3. Mucus plugging. 4. Diabetes mellitus. PLAN: Continue support. Patient is started on Mucomyst and sputum collected for culture. cc: Tony Patel Jr, MD
--- NOTE | 2017-01-04 10:00 | PROGRESS NOTE ---
DATE: 01/04/2017 PRESENT ILLNESS: The patient had pancytopenia; however, that is much better. He also has pneumonia which has not shown improvement yet radiographically. Clinically, I think the patient is doing fairly well. MEDICATIONS: The patient has been on meropenem and vancomycin now for 7 days. PHYSICAL EXAMINATION: Vital Signs: Temperature is 98.1 degrees, pulse 84, respirations 18, blood pressure 98/68. Generally, this is a somewhat ill-appearing, elderly male. He is in no acute distress. Lungs clear to auscultation. Cardiovascular: Heart rate is regular. Abdomen is soft and nontender. Thorax: The patient has a left-sided Port-A-Cath. The site is not swollen or erythematous. LABORATORY DATA AND X-RAY: CBC today shows a white count of 16,460. Hemoglobin 10.8, platelet count 64,000. Creatinine is 0.5. GFR is greater than 60. Sputum culture was ordered; however, the patient has not been able to produce any sputum at this time. ASSESSMENT AND PLAN: The patient has pneumonia. I plan to continue with his current antibiotics. Dr. Graham is seeing the patient also and possibly if he does not show any improvement, bronchoscopy may be a consideration. The patient's comorbidities include esophageal cancer which is metastatic to the lung, gastroesophageal reflux disease, and diabetes mellitus. cc: MD Tony Kohler Jr, MD
[2017-01-04] MEDS: XANAX PO PRN ×2 (10:36→17:45)
[2017-01-04] MEDS: DILAUDID IM PRN (18:40)
[2017-01-04] MEDS: REMERON PO SCH (20:58)
[2017-01-04] MEDS: CYMBALTA PO SCH (20:58)
[2017-01-05] MEDS: DILAUDID IM PRN ×2 (00:44→18:30)
[2017-01-05] MEDS: MERREM 1 GM in NS 50 ML IV SCH ×4 (03:05→19:25)
[2017-01-05] MEDS: VANCOMYCIN 1.2 GM in NS 250 ML IV SCH ×2 (03:05→16:22)
[2017-01-05] MEDS: DUONEB (A & A) INH SCH ×6 (03:55→23:29)
[2017-01-05] MEDS: HUMALOG SUBQ SCH ×5 (03:59→20:14)
[2017-01-05] MEDS: NS 1,000 ML IV SCH ×2 (03:59→12:22)
[2017-01-05 07:06] LABS: AGAP 14; BUN 23 mg/dL (8-22); CALCIUM 7.5 mg/dL (8.8-10.2); CHLORIDE 100 mmol/L (98-107); COSMO 271; POTASSIUM 4.6 mmol/L (3.5-5.1); SODIUM 132 mmol/L (136-145); TCO2 18 mmol/L (25-35)
[2017-01-05] MEDS: MUCOMYST 20% INH SCH ×2 (07:45→19:36)
[2017-01-05 09:09] LABS: BASO% 2.1 % (0.0-0.8); EOS# 0.09 X1000 (0.0-0.7); EOS% 0.4 % (0.0-10.0); HEMATOCRIT 30.8 % (42.0-52.0); HEMOGLOBIN 10.4 g/dL (14.0-18.0); IMM GRAN# 1.28 X1000 (0.0-0.04); IMM GRAN% 6.3 % (0.0-0.5); LYMPH# 1.21 X1000 (1.2-3.4); MANUAL DIFF NEEDED? YES; MCH 31.1 PG (27-31); MCHC 33.8 g/dL (33-37); MCV 92.2 FL (81-99); MONO# 1.66 X1000 (0.11-0.59); MONO% 8.2 % (1.7-9.3); MPV 11.7 FL (7.4-10.4); PLT 60 X1000 (130-400); RBC 3.34 XMIL (4.7-6.1)
[2017-01-05] MEDS: MS CONTIN PO SCH ×2 (09:11→20:06)
[2017-01-05] MEDS: GLUCOPHAGE PO SCH (09:11)
[2017-01-05] MEDS: WELLBUTRIN PO SCH (09:11)
[2017-01-05] MEDS: DECADRON PO SCH ×2 (09:11→20:05)
[2017-01-05] MEDS: CRESTOR PO SCH (09:11)
[2017-01-05 10:54] LABS: BANDS 10 % (0-1); LYMPHS 8 % (21-51); MONO 4 % (1-9)
--- NOTE | 2017-01-05 11:36 | PROGRESS NOTE ---
DATE: 01/05/2017 SUBJECTIVE: The patient says he is feeling better but feels very anxious. He is getting 2 mg of Xanax every 8 hours as needed for anxiety and it is not making him sleepy and he is still anxious. I will increase this to q.6 hours p.r.n. OBJECTIVE: Blood pressure is 107/66, respirations 16, pulse 71, temperature 97.7 degrees Fahrenheit.HEENT: Normocephalic. EOMs intact. PERRLA. Throat clear. Lungs: Sound fairly clear to auscultation though x-rays still showed a diffuse pattern pneumonia with mucous plugging. Heart: Regular rate rhythm without murmurs, gallops, or friction rubs. Abdomen: Soft. Active bowel sounds. No organomegaly or tenderness. Neurological: [place] [address]. He had been pancytopenic. Hemoglobin is 10.4, platelet count is 60,000. Blood sugar 143. BUN 23, creatinine 0.5. ASSESSMENT: 1. Pancytopenia. 2. Pneumonia. 3. Metastatic stage IV esophageal cancer with metastasis to the liver, lungs and brain. 4. Adult-onset diabetes mellitus. 5. Anxiety. PLAN: Continue treatment. We will get chest x-ray tomorrow. cc: Tony Patel Jr, MD
[2017-01-05] MEDS: XANAX PO PRN (12:17)
[2017-01-05] MEDS: REMERON PO SCH (20:05)
[2017-01-05] MEDS: CYMBALTA PO SCH (20:07)
[2017-01-06] MEDS: MERREM 1 GM in NS 50 ML IV SCH ×4 (02:38→19:19)
[2017-01-06] MEDS: DUONEB (A & A) INH SCH ×6 (03:23→23:10)
[2017-01-06] MEDS: VANCOMYCIN 1.2 GM in NS 250 ML IV SCH ×2 (03:31→14:41)
[2017-01-06] MEDS: DILAUDID IM PRN (04:46)
[2017-01-06 06:24] LABS: BASO% 0.3 % (0.0-0.8); HEMATOCRIT 29.2 % (42.0-52.0); HEMOGLOBIN 9.8 g/dL (14.0-18.0); IMM GRAN# 1.18 X1000 (0.0-0.04); IMM GRAN% 7.6 % (0.0-0.5); LYMPH% 5.2 % (20.5-51.1); MANUAL DIFF NEEDED? YES; MCH 30.7 PG (27-31); MCHC 33.6 g/dL (33-37); MCV 91.5 FL (81-99); MONO# 0.84 X1000 (0.11-0.59); MONO% 5.4 % (1.7-9.3); MPV 11.6 FL (7.4-10.4); NEUT% 81.5 % (42.2-75.2); PLT 73 X1000 (130-400); RBC 3.19 XMIL (4.7-6.1)
[2017-01-06 06:53] LABS: BANDS 6 % (0-1); LYMPHS 6 % (21-51); MONO 2 % (1-9)
[2017-01-06] MEDS: HUMALOG SUBQ SCH ×4 (07:25→20:04)
[2017-01-06] MEDS: NS 1,000 ML IV SCH ×2 (07:29→07:44)
[2017-01-06] MEDS: MUCOMYST 20% INH SCH ×2 (07:40→19:12)
[2017-01-06] MEDS: XANAX PO PRN ×2 (07:45→17:15)
[2017-01-06] MEDS: MS CONTIN PO SCH ×3 (07:45→20:04)
[2017-01-06] MEDS: GLUCOPHAGE PO SCH (07:45)
[2017-01-06] MEDS: WELLBUTRIN PO SCH ×2 (07:45→14:41)
[2017-01-06] MEDS: DECADRON PO SCH ×3 (07:45→20:03)
[2017-01-06] MEDS: CRESTOR PO SCH ×2 (07:46→13:45)
--- NOTE | 2017-01-06 08:20 | Diag Imaging Result Doc PS360 ---
EXAM: CHEST-2 VIEWS - 01/06/2017 HISTORY: pneumonia TECHNIQUE: Chest two views COMPARISON: Portable one view chest of 01/01/2017 FINDINGS: Heart size appears within normal limits. Inspiration is mildly shallow. There is persistent ill-defined infiltrate on the right. There is mild prominence of markings at the left base. There are apparent tiny bilateral pleural effusions. There is no pneumothorax identified. Central venous catheter remains in place. IMPRESSION: Persistent ill-defined infiltrate on the right. Mild prominence of left basilar markings. Tiny bilateral pleural effusions. Electronically signed by Marcos Bingham 01/06/2017 8:17 AM
--- NOTE | 2017-01-06 10:57 | PROGRESS NOTE ---
DATE: 01/06/2017 SUBJECTIVE: The patient says he is still very anxious. I had increased his frequency on his 2 mg of Xanax. I think this is as high as we should go for right now. He does have a little swelling around his left elbow and forearm where they have been drawing blood. I think this is just where he has gotten a little hematoma there and we will watch this. OBJECTIVE: Vital Signs: Blood pressure is 116/79, respirations 16, pulse 85, temperature 97.5 degrees Fahrenheit. Laboratory Data: White count 15,490 which is down from 20,170, hemoglobin is 9.8, hematocrit 29.2. Physical Examination: HEENT: Normocephalic. EOMs intact. PERRLA. Throat clear. Lungs: Have scattered rales now so it sounds like this is loosening up. Chest x-ray still showed a right lower lobe infiltrate. Heart: Regular rate and rhythm without murmurs, gallops, or friction rubs. Abdomen: Soft. Active bowel sounds. No organomegaly or tenderness. Neurological Examination: Intact grossly. ASSESSMENT: 1. Pancytopenia, resolved. 2. Pneumonia. 3. Metastatic stage IV esophageal cancer. 4. Adult onset diabetes mellitus. 5. Anxiety. PLAN: Continue care with IV antibiotics. Sputum culture showed no growth but 1+ yeast but he was already on antibiotics we got the sputum culture. cc: Tony Patel Jr, MD
[2017-01-06] MEDS: CYMBALTA PO SCH (20:03)
[2017-01-06] MEDS: REMERON PO SCH (20:03)
[2017-01-06] MEDS: NORCO-7.5 PO PRN (21:32)
[2017-01-07] MEDS: NS 1,000 ML IV SCH ×3 (00:09→15:49)
[2017-01-07] MEDS: XANAX PO PRN ×2 (00:09→10:37)
[2017-01-07] MEDS: MERREM 1 GM in NS 50 ML IV SCH ×3 (02:37→19:21)
[2017-01-07] MEDS: DUONEB (A & A) INH SCH ×6 (02:43→23:24)
[2017-01-07] MEDS: VANCOMYCIN 1.2 GM in NS 250 ML IV SCH ×2 (03:41→15:47)
[2017-01-07] MEDS: DILAUDID IM PRN ×2 (03:42→18:19)
[2017-01-07 05:35] LABS: BASO% 0.3 % (0.0-0.8); EOS# 0.01 X1000 (0.0-0.7); EOS% 0.1 % (0.0-10.0); HEMATOCRIT 28.4 % (42.0-52.0); HEMOGLOBIN 9.4 g/dL (14.0-18.0); IMM GRAN# 1.08 X1000 (0.0-0.04); IMM GRAN% 7.3 % (0.0-0.5); LYMPH# 0.71 X1000 (1.2-3.4); LYMPH% 4.8 % (20.5-51.1); MANUAL DIFF NEEDED? YES; MCH 30.4 PG (27-31); MCHC 33.1 g/dL (33-37); MCV 91.9 FL (81-99); MONO# 0.54 X1000 (0.11-0.59); MONO% 3.7 % (1.7-9.3); MPV 10.8 FL (7.4-10.4); NEUT% 83.8 % (42.2-75.2); PLT 70 X1000 (130-400); RBC 3.09 XMIL (4.7-6.1)
[2017-01-07 05:52] LABS: BANDS 3 % (0-1); BASO 1 % (0-1); LYMPHS 1 % (21-51); MONO 4 % (1-9); NRBC 2 % (0-0)
[2017-01-07] MEDS: HUMALOG SUBQ SCH ×4 (06:35→20:24)
[2017-01-07] MEDS: MS CONTIN PO SCH ×2 (08:48→20:20)
[2017-01-07] MEDS: CRESTOR PO SCH (08:48)
[2017-01-07] MEDS: GLUCOPHAGE PO SCH (08:50)
[2017-01-07] MEDS: DECADRON PO SCH ×2 (08:50→20:20)
[2017-01-07] MEDS: WELLBUTRIN PO SCH (08:50)
--- NOTE | 2017-01-07 09:21 | PROGRESS NOTE ---
DATE: 01/07/2017 PRESENT ILLNESS: The patient is being treated for pneumonia involving the right lung. MEDICATIONS: This is day 10 with combined treatment of vancomycin and meropenem. PHYSICAL EXAMINATION: Vital Signs: Temperature is 98 degrees, pulse 69, respirations 18, blood pressure 110/73. General: This is a chronically ill-appearing, elderly male. He is in no acute distress. Lungs: Clear to auscultation. Cardiovascular: Regular heart rate. Abdomen: Soft and nontender. Chest: The patient has a Port-A-Cath present on the left side. The site is not erythematous or draining or tender. LABORATORY AND X-RAY: [place] [address], hemoglobin 9.4, and platelet count 70,000. Vancomycin level is 15.3. Chest x-ray shows a right lung pneumonia. ASSESSMENT AND PLAN: The patient has pneumonia. I plan to continue his current antibiotics. I have put a consult in for [facility] to supply the patient's antibiotics at home. Since the patient has a Port-A-Cath in place we will not need a PICC. COMORBIDITIES: Include esophageal cancer which is metastatic to the lung, gastroesophageal reflux disease and diabetes mellitus. cc: MD Tony Kohler Jr, MD
--- NOTE | 2017-01-07 09:25 | PROGRESS NOTE ---
DATE: 01/07/2017 SUBJECTIVE: Patient says he is feeling better. He is coughing up some green sputum now. OBJECTIVE: Vital Signs: Blood pressure 110/73, respirations 18, pulse 69, temperature 98 degrees Fahrenheit. On room air, oxygen saturation is 96%. HEENT: Normocephalic. EOMs intact. PERRLA. Throat clear. Lungs: Have rales over the right middle lobe. Heart: Regular rate and rhythm without murmurs, gallops, or friction rubs. Abdomen: Soft. Active bowel sounds. No organomegaly or tenderness. Neurological: Examination intact grossly. ASSESSMENT: 1. Pneumonia in the right hilar area. The patient does seem to be getting clinically better but is coughing up green sputum now. 2. Stage IV esophageal cancer with metastasis to lungs, liver, and brain. 3. Pancytopenia, now resolved. PLAN: Continue care. cc: Tony Patel Jr, MD
[2017-01-07] MEDS: MUCOMYST 20% INH SCH ×2 (11:18→19:36)
[2017-01-07] MEDS: NORCO-7.5 PO PRN (14:02)
[2017-01-07] MEDS: REMERON PO SCH (20:20)
[2017-01-07] MEDS: CYMBALTA PO SCH (20:20)
[2017-01-08] MEDS: XANAX PO PRN ×4 (01:29→23:44)
[2017-01-08] MEDS: MERREM 1 GM in NS 50 ML IV SCH ×2 (02:01→11:57)
[2017-01-08] MEDS: DILAUDID IM PRN ×3 (02:53→17:38)
[2017-01-08] MEDS: VANCOMYCIN 1.2 GM in NS 250 ML IV SCH ×2 (02:53→15:49)
[2017-01-08] MEDS: DUONEB (A & A) INH SCH ×6 (03:21→23:22)
[2017-01-08] MEDS: NS 1,000 ML IV SCH ×3 (06:47→17:24)
[2017-01-08] MEDS: HUMALOG SUBQ SCH ×4 (06:48→21:31)
[2017-01-08] MEDS: MUCOMYST 20% INH SCH ×2 (08:04→19:25)
--- NOTE | 2017-01-08 08:10 | Diag Imaging Result Doc PS360 ---
EXAM: CHEST-2 VIEWS INDICATION: abnormal exam TECHNIQUE: 2 views COMPARISON: 01/06/2017 FINDINGS: The left chest port is stable. The ill-defined infiltrate throughout the right lung and slight increased left basilar markings are unchanged. No new consolidation is appreciated. Cardiac silhouette is stable. IMPRESSION: Essentially stable chest. Electronically signed by Eduard Rooney 01/08/2017 8:07 AM
[2017-01-08] MEDS: CRESTOR PO SCH (09:25)
[2017-01-08] MEDS: WELLBUTRIN PO SCH (09:26)
[2017-01-08] MEDS: MS CONTIN PO SCH ×2 (09:26→21:30)
[2017-01-08] MEDS: GLUCOPHAGE PO SCH (09:26)
[2017-01-08] MEDS: DECADRON PO SCH ×2 (09:26→21:31)
[2017-01-08 10:10] LABS: BASO% 0.2 % (0.0-0.8); HEMATOCRIT 29.4 % (42.0-52.0); HEMOGLOBIN 10.2 g/dL (14.0-18.0); IMM GRAN# 0.77 X1000 (0.0-0.04); IMM GRAN% 5.3 % (0.0-0.5); LYMPH# 0.67 X1000 (1.2-3.4); LYMPH% 4.6 % (20.5-51.1); MANUAL DIFF NEEDED? YES; MCH 32.1 PG (27-31); MCHC 34.7 g/dL (33-37); MCV 92.5 FL (81-99); MONO# 0.54 X1000 (0.11-0.59); MONO% 3.7 % (1.7-9.3); NEUT% 86.2 % (42.2-75.2); PLT 86 X1000 (130-400); RBC 3.18 XMIL (4.7-6.1)
[2017-01-08 10:16] LABS: LYMPHS 6 % (21-51); MONO 1 % (1-9)
--- NOTE | 2017-01-08 11:24 | PROGRESS NOTE ---
DATE: 01/08/2017 SUBJECTIVE: The patient says he is feeling better with his breathing and what he is coughing up is a department head green than what it was previously. Chest x-ray is essentially stable. There is an ill-defined infiltrate throughout the right lung with slight increased basilar markings that are unchanged. OBJECTIVE: Vital Signs: Blood pressure is 114/69, respirations 20, pulse 80, temperature 97.7 degrees Fahrenheit. HEENT: He is normocephalic. Lungs: Have scattered rales and end-expiratory wheeze in the right lung field. Heart: Regular rate and rhythm without murmurs, gallops, or friction rubs. Abdomen: Soft. Active bowel sounds. No organomegaly or tenderness. Neurological exam: Intact grossly. ASSESSMENT: 1. Esophageal cancer metastatic stage IV, including brain metastasis. 2. Pneumonia. 3. Pancytopenia, now resolved. PLAN: Continue IV antibiotics. Patient is slowly regaining some strength. He is to have some radiation therapy for his metastasis. cc: Tony Patel Jr, MD
--- NOTE | 2017-01-08 14:40 | Extremity Venous Study ---
PROCEDURE NAME: Venous U/S Left Arm - 01/05/2017 REFERRING PHYSICIAN: Dr. Tony Patel Jr. IDENTIFYING DATA: A 66-year-old male. CLAIMS CONFIGURATION ANALYST: Shola. INDICATIONS: Swelling of the limb, ICD 10 M79.89. FINDINGS: The left internal jugular vein was compressible and had flow through it. The left subclavian and axillary vein had flow through them, without evidence of thrombus. The cephalic and basilic veins were compressible throughout their length. Left arm: The brachial vein, left arm, was compressible and had flow through it. The small veins in the antecubital fossa and left forearm were all compressible and had flow through them. IMPRESSION: No evidence of acute deep or superficial venous thrombosis, left upper extremity. cc: MD Tony Garner Jr, MD
--- NOTE | 2017-01-08 16:24 | PROGRESS NOTE ---
DATE: 01/08/2017 PRESENT ILLNESS: The patient is being treated for a pneumonia involving the right lung and possibly the left lung, as well. MEDICATIONS: This is the 11th day of treatment with a combination of vancomycin and meropenem. PHYSICAL EXAMINATION: Vital Signs: Temperature is 97.5 degrees, pulse is 109, respirations are 12, and blood pressure 114/77. General: This is a chronically ill-appearing, elderly male. He is in no acute distress. Chest: The patient has a Port-A-Cath on the left side. The site is not erythematous or swollen. Lungs: Clear to auscultation. Cardiovascular: Regular heart rate. Abdomen: Soft and nontender. LABORATORY AND X-RAY: The patient's CBC for today shows a white count of 14,440, hemoglobin 10.2, and platelet count 86,000. Chest x-ray shows infiltrate throughout the right lung and increase in the left basilar markings. The patient does not have a creatinine for today. ASSESSMENT AND PLAN: Patient has pneumonia. I plan to continue vancomycin and substituted cefepime for meropenem. Furthermore, I am going to consult [facility] to supply the patient's antibiotics at home. COMORBIDITIES: Include esophageal cancer, which is metastatic, gastroesophageal reflux disease, and diabetes mellitus. cc: MD Tony Kohler Jr, MD
[2017-01-08] MEDS: MAXIPIME 2 GM/NS 2 GM/100 ML IVPB IV SCH (17:41)
[2017-01-08] MEDS: CYMBALTA PO SCH (21:30)
[2017-01-08] MEDS: REMERON PO SCH (21:31)
[2017-01-09] MEDS: NORCO-7.5 PO PRN (00:05)
[2017-01-09] MEDS: VANCOMYCIN 1.2 GM in NS 250 ML IV SCH ×2 (02:22→13:33)
[2017-01-09] MEDS: DUONEB (A & A) INH SCH ×4 (03:31→15:01)
[2017-01-09] MEDS: NS 1,000 ML IV SCH (04:37)
[2017-01-09] MEDS: MAXIPIME 2 GM/NS 2 GM/100 ML IVPB IV SCH (06:10)
[2017-01-09] MEDS: HUMALOG SUBQ SCH ×2 (06:11→12:05)
[2017-01-09 06:36] LABS: AGAP 8; BUN 16 mg/dL (8-22); CALCIUM 7.7 mg/dL (8.8-10.2); CHLORIDE 101 mmol/L (98-107); COSMO 271; POTASSIUM 4.1 mmol/L (3.5-5.1); SODIUM 134 mmol/L (136-145); TCO2 25 mmol/L (25-35)
[2017-01-09] MEDS: MUCOMYST 20% INH SCH (07:44)
[2017-01-09] MEDS: CRESTOR PO SCH (10:38)
[2017-01-09] MEDS: MS CONTIN PO SCH (10:38)
[2017-01-09] MEDS: GLUCOPHAGE PO SCH (10:38)
[2017-01-09] MEDS: DECADRON PO SCH (10:38)
[2017-01-09] MEDS: WELLBUTRIN PO SCH (10:38)
[2017-01-09 10:47] LABS: BASO% 0.2 % (0.0-0.8); HEMATOCRIT 29.8 % (42.0-52.0); IMM GRAN# 0.51 X1000 (0.0-0.04); IMM GRAN% 4.7 % (0.0-0.5); LYMPH# 0.71 X1000 (1.2-3.4); LYMPH% 6.6 % (20.5-51.1); MANUAL DIFF NEEDED? YES; MCH 31.4 PG (27-31); MCHC 33.6 g/dL (33-37); MCV 93.7 FL (81-99); MONO# 0.38 X1000 (0.11-0.59); MONO% 3.5 % (1.7-9.3); MPV 11.4 FL (7.4-10.4); PLT 81 X1000 (130-400); RBC 3.18 XMIL (4.7-6.1)
[2017-01-09] MEDS: XANAX PO PRN (11:07)
[2017-01-09 11:36] LABS: LYMPHS 4 % (21-51); MONO 4 % (1-9)
[2017-01-09] MEDS: DILAUDID IM PRN (13:30)
[2017-01-09 15:34] VITALS: BP 131/83
--- NOTE | 2017-01-10 05:53 | DISCHARGE SUMMARY ---
ADMISSION DATE: 12/27/2016 DISCHARGE DATE: 01/09/2017 CONSULTATIONS: Cardiology, Dr. Macias; pulmonology, Dr. Graham; infectious disease, Dr. Joseph; and oncology, Dr. Elkins. FINAL DIAGNOSES: 1. Right lung field pneumonia. 2. Stage IV metastatic esophageal cancer with brain metastases. 3. Adult onset diabetes mellitus. 4. Chest pain. 5. Hyperlipidemia. 6. Depression. 7. Severe anxiety. 8. Pancytopenia. PLAN: We will discharge on home medications. Please see list. Plus he will be on IV vancomycin and IV cefepime at home. That has been arranged by Dr. Joseph, infectious disease. I will leave him on Xanax 2 mg every 8 hours as needed for anxiety. He is taking that large of a dose to help and he still stays anxious with this. Some of it may be because he is on dexamethasone 4 mg p.o. b.i.d. as well. HOSPITAL COURSE: When the patient 1st came in the hospital, he had right lung field pneumonia. Still has this to a certain extent, though it has improved some. Some of it we see on x-ray may be his lung cancer metastasis as he started with esophageal carcinoma. When he first came in, his CBC revealed a pancytopenia which, with treatment, has since resolved. He had been getting some chemotherapy. He is about to undergo some radiation therapy for his brain as he has brain metastasis. Cardiac workup was not significant. His chest pain is probably from his lung cancer. He has improved with his pneumonia but his overall course is still critical with his stage IV cancer. PHYSICAL EXAMINATION: General: He is a well-developed, well-nourished, white male. At this time, in no apparent distress and seems appropriate with his thinking. HEENT: Normocephalic. EOMs intact. PERRLA. Throat clear. Pulmonary: Lungs have scattered rales in the right lung roy without wheezing or rhonchi. Heart: Regular rate rhythm without murmurs, gallops, or friction rubs. Abdomen: Soft. Active bowel sounds. No organomegaly or tenderness. Neurological Examination: Cranial nerves 2-12 intact grossly. Sensory and motor intact. Reflexes 1+ all. The patient is anxious. DISPOSITION: We will discharge home. We will see back in my office within the next 2 weeks. cc: Tony Patel Jr, MD
== END 2017-01-09 17:18 | disposition home health service (06) ==
LOC: SUPCPDRO → ED 10:36 → EDIPHOLD 13:18 → ICU 19:35 → 4N 01-03 14:53
PROVIDERS: ADMIT Emergency Medicine; ATTEND Emergency Medicine

== ENCOUNTER 2017-01-12 15:56 | Inpatient (IN) ==
[2017-01-12] MEDS ORDERED: DUONEB (A & A) INH ONE (16:28)
[2017-01-12] MEDS ORDERED: DILAUDID IV ONE (16:31)
--- NOTE | 2017-01-12 16:49 | Diag Imaging Result Doc PS360 ---
EXAM: CHEST-1 VIEW HISTORY: CP TECHNIQUE: Portable upright AP COMPARISON: 01/08/2017 FINDINGS: Interval worsening of the right lung infiltrates. The left lung remains clear. No change in the left-sided portacatheter. No pneumothorax. No pleural effusions identified. The heart is mildly prominent. IMPRESSION: Interval worsening in the right infiltrates. Electronically signed by Miguel Arceo 01/12/2017 4:46 PM
[2017-01-12 17:33] LABS: BASO% 0.8 % (0.0-0.8); EOS# 0.02 X1000 (0.0-0.7); EOS% 0.2 % (0.0-10.0); HEMATOCRIT 31.7 % (42.0-52.0); HEMOGLOBIN 10.7 g/dL (14.0-18.0); IMM GRAN# 0.59 X1000 (0.0-0.04); IMM GRAN% 5.6 % (0.0-0.5); LYMPH# 0.88 X1000 (1.2-3.4); LYMPH% 8.3 % (20.5-51.1); MANUAL DIFF NEEDED? NO; MCH 31.7 PG (27-31); MCHC 33.8 g/dL (33-37); MCV 93.8 FL (81-99); MONO# 0.41 X1000 (0.11-0.59); MONO% 3.9 % (1.7-9.3); MPV 10.3 FL (7.4-10.4); NEUT% 81.2 % (42.2-75.2); PLT 89 X1000 (130-400); RBC 3.38 XMIL (4.7-6.1)
[2017-01-12 17:39] LABS: INR 1.09; PROTIME 11.5 Seconds (9.2-11.7)
--- NOTE | 2017-01-12 17:42 | PROVIDER DOCUMENTATION ---
This chart was entered by Yareli Mcdaniel Scribe, acting as scribe for Carson William MD. HPI-General Adult - General Chief Complaint: Weakness Stated Complaint: weakness Time Seen by Provider: 01/12/17 16:00 Source: patient Allergies/Adverse Reactions: Patient Allergies Allergy/AdvReac Type Severity Reaction Status Date / Time No Known Allergies Allergy Verified 01/12/17 16:10 Home Medications: Home Medication List Medication Instructions Recorded Confirmed Last Taken Type Alprazolam [Xanax] 2 mg PO Q8H PRN PRN 10/14/13 01/12/17 12/26/16 21:00 History Mirtazapine [Remeron] 30 mg PO HS 10/04/15 01/12/17 12/26/16 21:00 History Duloxetine [Cymbalta] 60 mg PO QHS #0 capsule 10/07/15 01/12/17 12/26/16 10:00 Rx Bupropion [Wellbutrin] 100 mg PO QAM 12/27/16 01/12/17 12/26/16 10:00 History Dexamethasone 4 mg PO BID 12/27/16 01/12/17 12/26/16 15:00 History Fenofibric Acid 35 mg PO DAILY 12/27/16 01/12/17 12/26/16 10:00 History Hydrocodone Bit/Acetaminophen 1 each PO PRN PRN 12/27/16 01/12/17 Unknown History [Hydrocodon-Acetaminoph 7.5-325] Metformin [Glucophage] 500 mg PO WBREAKFAST 12/27/16 01/12/17 12/26/16 21:00 History Morphine Sulfate 15 mg PO BID 12/27/16 01/12/17 12/26/16 21:00 History ROSUVAstatin [Crestor] 20 mg PO DAILY 12/27/16 01/12/17 12/26/16 10:00 History - History of Present Illness -Gen Adult Nature of Presenting Problems: Pt is 66 y/o M presents to the ED with generalized weakness. Pt states recent being discharged after admit for pneumonia. Pt states N and denies V. Location of Pain/Injury: reports: generalized Pain Radiation: reports: no radiation Quality of Pain: reports: aching Severity: reports: mild Onset/Duration: reports: unsure Timing: reports: still present, getting worse Context/Activities at Onset: reports: light activity Modifying Factors: improves with: nothing Associated Symptoms: reports: nausea, weakness. denies: anxiety, arm pain, back /neck pain, chest pain, constipation, cough, diaphoresis, diarrhea, dizziness, EENT symptoms, fatigue, fever/chills, genitourinary problems, headaches, heartburn, joint pain, loss of appetite, malaise, muscle aches, sinus congestion /drainage, rash, seizure, shortness of breath, sensory/motor loss, pain with inspiration, swelling/mass in abdomen, syncope, vomiting, trouble walking Similar Symptoms Previously?: Yes Recently seen or treated by another doctor?: No Review of Systems - Adult - REVIEW OF SYSTEMS - ADULT Constitutional: reports: no symptoms reported Eyes: reports: no symptoms reported Ears, Nose, Mouth & Throat: reports: no symptoms reported Cardiovascular: reports: no symptoms reported Respiratory: reports: no symptoms reported Gastrointestinal: reports: nausea. denies: abdominal pain, diarrhea, vomiting Genitourinary: reports: no symptoms reported Musculoskeletal: reports: muscle weakness. denies: bone pain, joint pain, neck pain Integumentary: reports: no symptoms reported Neurological: reports: no symptoms reported Psychiatric: reports: no symptoms reported Endocrine: reports: no symptoms reported Hematologic/Lymphatic: reports: no symptoms reported Allergic/Immunologic: reports: no symptoms reported All Other Systems: Reviewed and Negative Past History - Adult - PAST MEDICAL HISTORY-ADULT Review of Records: reports: Nursing Assessment Review, Medications Reviewed, Social history reviewed & non-contributory. Major Childhood Illnesses: reports: denies history Cardiovascular: reports: HTN Respiratory: reports: COPD Gastrointestinal: reports: cancer Obstetrical/Gynecological: reports: denies history Genitourinary: reports: denies history Musculoskeletal: reports: denies history Neurological: reports: CVA Endocrine/Immune: reports: Diabetes Other Conditions: reports: denies history - PRIOR SURGERIES/PROCEDURES Surgical/Procedure History: reports: appendectomy, cardiac stent - IMMUNIZATION STATUS Childhood Immunizations: See Nurse Assessment Flu Vaccine: See Nurse Assessment - FAMILY HISTORY Family History: reviewed, not pertinent - SOCIAL HISTORY Smoking: quit less than 1 year, cigarettes Substance Use: alcohol Alcohol Use Frequency: every day Number of drinks per typical drinking period:: 2 drinks Living Situation: family Physical Exam-General - PHYSICAL EXAM-ADULT Initial Vital Signs Reviewed: Yes - CONSTITUTIONAL General Appearance: alert, no apparent distress - EYES Eyes: PERRL/EOMI, pink conjunctivae - HEAD, EARS, NOSE, MOUTH & THROAT HENMT: normal ENT inspection - NECK Neck: normal inspection - RESPIRATORY Respiratory: chest non-tender, decreased breath sounds, rhonchi (bilateral) - CARDIOVASCULAR Cardiovascular: normal peripheral pulses, regular rate, rhythm - GASTROINTESTINAL (ABDOMEN) Abdominal Exam: normal bowel sounds, non tender, soft - LYMPHATIC Lymphatic: no adenopathy - MUSCULOSKELETAL Back Exam: normal inspection Extremity: normal range of motion, normal inspection - SKIN Integumentary: normal color, normal turgor, diaphoresis - NEUROLOGIC Neurologic: grossly normal - PSYCHIATRIC Psych/Mental Status: normal mood/affect, oriented x 3 Progress - PLAN OF CARE/RESULTS Progress/Plan/Lab Results: Vital Signs - 8 hr 01/12/17 16:08 01/12/17 16:24 01/12/17 16:46 Temperature 97.8 F Pulse Rate 92 H 109 H 109 H Respiratory Rate 16 20 20 Blood Pressure 99/73 97/67 O2 Sat by Pulse Oximetry 84 L 92 L 100 Orders Category Date Time Status Cardiac Monitoring DIRECTED Care 01/12/17 16:26 Active Mclain Cath Insertion ORDERED Care 01/12/17 16:31 Active Saline Loc NOW Care 01/12/17 16:26 Active CHEST-1 VIEW [RAD] Stat Exams 01/12/17 16:26 Completed BLOOD CULTURE [BLDCUL] Stat Lab 01/12/17 17:12 Ordered CBC WITH ELECTRONIC DIFF [HEME] Stat Lab 01/12/17 17:12 Ordered CK PROFILE [SP CHEM] Stat Lab 01/12/17 17:12 Ordered COMPREHENSIVE METABOLIC PANEL [CHEM] Stat Lab 01/12/17 17:12 Ordered LACTATE, PLASMA [CHEM] Stat Lab 01/12/17 17:12 Ordered MAGNESIUM [CHEM] Stat Lab 01/12/17 17:12 Ordered PRO B-NATRIURETIC PEPTIDE Stat Lab 01/12/17 17:12 Ordered PROTIME WITH INR [COAG] Stat Lab 01/12/17 17:12 Ordered PTT [COAG] Stat Lab 01/12/17 17:12 Ordered TROPONIN T Stat Lab 01/12/17 17:12 Ordered Albuterol 2.5MG/Ipratrop 0.5MG [Duoneb (A & A)] Med 01/12/17 16:28 Discontinued 3 ml INH NOW ONE Hydromorphone [Dilaudid] Med 01/12/17 16:31 Discontinued 1 mg IV NOW ONE Aerosol Treatments Routine Oth 01/12/17 16:28 Completed Aerosol Treatments Stat Oth 01/12/17 16:28 Completed EKG [EKG] Stat Ther 01/12/17 16:26 Ordered Laboratory Tests 01/12/17 01/12/17 01/12/17 17:12 17:12 17:12 WBC 10.61 RBC 3.38 L Hgb 10.7 L Hct 31.7 L MCV 93.8 MCH 31.7 H MCHC 33.8 RDW Std Deviation 16.4 H Plt Count 89 L MPV 10.3 Immature Gran % (Auto) 5.6 H Neut % (Auto) 81.2 H Lymph % (Auto) 8.3 L Saline % (Auto) 3.9 Eos % (Auto) 0.2 Baso % (Auto) 0.8 Immature Gran # (Auto) 0.59 H Neut # (Auto) 8.62 H Lymph # (Auto) 0.88 L Saline # (Auto) 0.41 Eos # (Auto) 0.02 Baso # (Auto) 0.09 PT INR PTT (Actin FS) Sodium 137 Potassium 4.1 Chloride 99 Carbon Dioxide 26 Anion Gap 12 BUN 14 Creatinine 0.5 L Estimated GFR/1.73 m2 > 60 BUN/Creatinine Ratio 28 Glucose 94 Calculated Osmolality 274 Calcium 7.9 L Magnesium 1.1 L Total Bilirubin 0.53 AST 39 H ALT 76 H Alkaline Phosphatase 246 H Creatine Kinase 57 Troponin T Vcu-M-Rvsgyxjlugv Pept 1492 H Total Protein 5.1 L Albumin 2.6 L Globulin 2.5 Albumin/Globulin Ratio 1.0 Plasma Lactate Urine Source Urine Color Urine Turbidity Urine pH Ur Specific Comfort Urine Protein Ur Glucose (Stick) Ur Ketones (Stick) Urine Blood Urine Nitrite Urine Bilirubin Urobilinogen Dipstick Urine Leukocytes Urine WBC (Auto) Urine RBC (Auto) U Epithel Cells (Auto) Urine Bacteria (Auto) 01/12/17 01/12/17 01/12/17 17:12 17:12 17:12 WBC RBC Hgb Hct MCV MCH MCHC RDW Std Deviation Plt Count MPV Immature Gran % (Auto) Neut % (Auto) Lymph % (Auto) Saline % (Auto) Eos % (Auto) Baso % (Auto) Immature Gran # (Auto) Neut # (Auto) Lymph # (Auto) Saline # (Auto) Eos # (Auto) Baso # (Auto) PT 11.5 INR 1.09 PTT (Actin FS) 33.0 Sodium Potassium Chloride Carbon Dioxide Anion Gap BUN Creatinine Estimated GFR/1.73 m2 BUN/Creatinine Ratio Glucose Calculated Osmolality Calcium Magnesium Total Bilirubin AST ALT Alkaline Phosphatase Creatine Kinase Troponin T 0.042 Eai-B-Incgnzrbzie Pept Total Protein Albumin Globulin Albumin/Globulin Ratio Plasma Lactate 1.6 Urine Source Urine Color Urine Turbidity Urine pH Ur Specific Comfort Urine Protein Ur Glucose (Stick) Ur Ketones (Stick) Urine Blood Urine Nitrite Urine Bilirubin Urobilinogen Dipstick Urine Leukocytes Urine WBC (Auto) Urine RBC (Auto) U Epithel Cells (Auto) Urine Bacteria (Auto) 01/12/17 17:30 WBC RBC Hgb Hct MCV MCH MCHC RDW Std Deviation Plt Count MPV Immature Gran % (Auto) Neut % (Auto) Lymph % (Auto) Saline % (Auto) Eos % (Auto) Baso % (Auto) Immature Gran # (Auto) Neut # (Auto) Lymph # (Auto) Saline # (Auto) Eos # (Auto) Baso # (Auto) PT INR PTT (Actin FS) Sodium Potassium Chloride Carbon Dioxide Anion Gap BUN Creatinine Estimated GFR/1.73 m2 BUN/Creatinine Ratio Glucose Calculated Osmolality Calcium Magnesium Total Bilirubin AST ALT Alkaline Phosphatase Creatine Kinase Troponin T Qku-X-Fcxxymvqbmr Pept Total Protein Albumin Globulin Albumin/Globulin Ratio Plasma Lactate Urine Source CATH Urine Color YELLOW Urine Turbidity CLEAR Urine pH 7.0 Ur Specific Comfort 1.015 Urine Protein NEGATIVE Ur Glucose (Stick) NEGATIVE Ur Ketones (Stick) NEGATIVE Urine Blood NEGATIVE Urine Nitrite NEGATIVE Urine Bilirubin NEGATIVE Urobilinogen Dipstick 2 A Urine Leukocytes NEGATIVE Urine WBC (Auto) <10 Urine RBC (Auto) <10 U Epithel Cells (Auto) <10 Urine Bacteria (Auto) NEGATIVE Orders Category Date Time Status Admit - [facility] - [facility] Routine AdmDCTranf 01/12/17 19:02 Ordered Activity - Bed Rest with BRP ORDERED Care 01/12/17 19:01 Ordered Call Admitting on Arrival AT ADMISSION Care 01/12/17 19:07 Ordered Cardiac Monitoring DIRECTED Care 01/12/17 16:26 Active Mclain Cath Insertion ORDERED Care 01/12/17 16:31 Active Neurological Check Q4H Care 01/12/17 19:07 Ordered Saline Loc NOW Care 01/12/17 16:26 Active Vital Signs Order ROUTINE Care 01/12/17 19:01 Ordered Z-Document. for Tele Applied ORDERED Care 01/12/17 19:09 Ordered Regular Diet Diet 01/12/17 19:08 Ordered CHEST-1 VIEW [RAD] Stat Exams 01/12/17 16:26 Completed BLOOD CULTURE [BLDCUL] Stat Lab 01/12/17 18:55 Received CBC WITH ELECTRONIC DIFF [HEME] Stat Lab 01/12/17 17:12 Completed CK PROFILE [SP CHEM] Stat Lab 01/12/17 17:12 Completed COMPREHENSIVE METABOLIC PANEL [CHEM] Stat Lab 01/12/17 17:12 Completed LACTATE, PLASMA [CHEM] Stat Lab 01/12/17 17:12 Completed MAGNESIUM [CHEM] Stat Lab 01/12/17 17:12 Completed PRO B-NATRIURETIC PEPTIDE Stat Lab 01/12/17 17:12 Completed PROTIME WITH INR [COAG] Stat Lab 01/12/17 17:12 Completed PTT [COAG] Stat Lab 01/12/17 17:12 Completed TROPONIN T Stat Lab 01/12/17 17:12 Completed UA Reflex [URINALYSIS W/POSS RFLX CULT] [URINALYSIS] Lab 01/12/17 17:30 Completed Stat 0.9% Sodium Chloride Inj [Ns] 1,000 ml Med 01/12/17 19:01 Ordered IV 125 mls/hr Acetaminophen [Tylenol] Med 01/12/17 19:01 Ordered 650 mg PO Q6H PRN PRN Albuterol 2.5MG/Ipratrop 0.5MG [Duoneb (A & A)] Med 01/12/17 16:28 Discontinued 3 ml INH NOW ONE Albuterol 2.5MG/Ipratrop 0.5MG [Duoneb (A & A)] Med 01/12/17 19:30 Ordered 3 ml INH RTQ4H Hydromorphone [Dilaudid] Med 01/12/17 16:31 Discontinued 1 mg IV NOW ONE Levaquin 750 mg/D5w IV Now Med 01/12/17 19:01 Ordered Levofloxacin 750 mg/D5w [Levaquin 750 mg/D5w] 750 mg in 150 ml IV NOW Ondansetron [Zofran] Med 01/12/17 19:01 Ordered 4 mg IV Q4H PRN PRN Piperacil/Tazobact 4.5 gm/Ns [Zosyn 4.5 gm/Ns] Med 01/12/17 18:37 Active 4.5 gm in 100 ml IV NOW Vancomycin 1 gm/Ns Med 01/12/17 18:37 Active 1 gm in 250 ml IV NOW Aerosol Treatments Routine Oth 01/12/17 16:28 Completed Aerosol Treatments Routine Oth 01/12/17 19:09 Ordered Aerosol Treatments Stat Oth 01/12/17 16:28 Completed Aerosol Treatments Stat Oth 01/12/17 19:09 Ordered Oxygen Device Routine Oth 01/12/17 19:07 Ordered Telemetry [OM.EQ] Routine Oth 01/12/17 19:01 Ordered EKG [EKG] Stat Ther 01/12/17 16:26 Ordered Vital Signs Temp Pulse Resp BP Pulse Ox 01/12/17 17:52 108 H 20 108/75 86 L 01/12/17 16:46 109 H 20 100 01/12/17 16:24 97.8 F 109 H 20 97/67 92 L 01/12/17 16:08 92 H 16 99/73 84 L No Known Allergies Allergy (Verified 01/12/17 16:10) Alprazolam [Xanax] 2 mg PO Q8H PRN PRN 10/14/13 Mirtazapine [Remeron] 30 mg PO HS 10/04/15 Duloxetine [Cymbalta] 60 mg PO QHS #0 capsule 10/07/15 Bupropion [Wellbutrin] 100 mg PO QAM 12/27/16 Dexamethasone 4 mg PO BID 12/27/16 Fenofibric Acid 35 mg PO DAILY 12/27/16 Hydrocodone Bit/Acetaminophen [Hydrocodon-Acetaminoph 7.5-325] 1 each PO PRN PRN 12/27/16 Metformin [Glucophage] 500 mg PO WBREAKFAST 12/27/16 Morphine Sulfate 15 mg PO BID 12/27/16 ROSUVAstatin [Crestor] 20 mg PO DAILY 12/27/16 Dietary Diet Regular Diet Start Sat Jan 13 1908 I&O 01/11/17 01/12/17 01/13/17 06:59 06:59 06:59 Output Total 75 / 75 Balance -75 / -75 Laboratory 01/12/17 01/12/17 01/12/17 17:30 17:12 17:12 WBC RBC Hgb Hct MCV MCH MCHC RDW Std Deviation Plt Count MPV Immature Gran % (Auto) Neut % (Auto) Lymph % (Auto) Saline % (Auto) Eos % (Auto) Baso % (Auto) Immature Gran # (Auto) Neut # (Auto) Lymph # (Auto) Saline # (Auto) Eos # (Auto) Baso # (Auto) PT INR PTT (Actin FS) Sodium Potassium Chloride Carbon Dioxide Anion Gap BUN Creatinine Estimated GFR/1.73 m2 BUN/Creatinine Ratio Glucose Calculated Osmolality Calcium Magnesium Total Bilirubin AST ALT Alkaline Phosphatase Creatine Kinase Troponin T 0.042 Gpj-W-Hgzlzajrkbo Pept Total Protein Albumin Globulin Albumin/Globulin Ratio Plasma Lactate 1.6 Urine Source CATH Urine Color YELLOW Urine Turbidity CLEAR Urine pH 7.0 Ur Specific Comfort 1.015 Urine Protein NEGATIVE Ur Glucose (Stick) NEGATIVE Ur Ketones (Stick) NEGATIVE Urine Blood NEGATIVE Urine Nitrite NEGATIVE Urine Bilirubin NEGATIVE Urobilinogen Dipstick 2 A Urine Leukocytes NEGATIVE Urine WBC (Auto) <10 Urine RBC (Auto) <10 U Epithel Cells (Auto) <10 Urine Bacteria (Auto) NEGATIVE 01/12/17 01/12/17 01/12/17 17:12 17:12 17:12 WBC RBC Hgb Hct MCV MCH MCHC RDW Std Deviation Plt Count MPV Immature Gran % (Auto) Neut % (Auto) Lymph % (Auto) Saline % (Auto) Eos % (Auto) Baso % (Auto) Immature Gran # (Auto) Neut # (Auto) Lymph # (Auto) Saline # (Auto) Eos # (Auto) Baso # (Auto) PT 11.5 INR 1.09 PTT (Actin FS) 33.0 Sodium 137 Potassium 4.1 Chloride 99 Carbon Dioxide 26 Anion Gap 12 BUN 14 Creatinine 0.5 L Estimated GFR/1.73 m2 > 60 BUN/Creatinine Ratio 28 Glucose 94 Calculated Osmolality 274 Calcium 7.9 L Magnesium 1.1 L Total Bilirubin 0.53 AST 39 H ALT 76 H Alkaline Phosphatase 246 H Creatine Kinase 57 Troponin T Uos-D-Ctxunzraaga Pept 1492 H Total Protein 5.1 L Albumin 2.6 L Globulin 2.5 Albumin/Globulin Ratio 1.0 Plasma Lactate Urine Source Urine Color Urine Turbidity Urine pH Ur Specific Comfort Urine Protein Ur Glucose (Stick) Ur Ketones (Stick) Urine Blood Urine Nitrite Urine Bilirubin Urobilinogen Dipstick Urine Leukocytes Urine WBC (Auto) Urine RBC (Auto) U Epithel Cells (Auto) Urine Bacteria (Auto) 01/12/17 17:12 WBC 10.61 RBC 3.38 L Hgb 10.7 L Hct 31.7 L MCV 93.8 MCH 31.7 H MCHC 33.8 RDW Std Deviation 16.4 H Plt Count 89 L MPV 10.3 Immature Gran % (Auto) 5.6 H Neut % (Auto) 81.2 H Lymph % (Auto) 8.3 L Saline % (Auto) 3.9 Eos % (Auto) 0.2 Baso % (Auto) 0.8 Immature Gran # (Auto) 0.59 H Neut # (Auto) 8.62 H Lymph # (Auto) 0.88 L Saline # (Auto) 0.41 Eos # (Auto) 0.02 Baso # (Auto) 0.09 PT INR PTT (Actin FS) Sodium Potassium Chloride Carbon Dioxide Anion Gap BUN Creatinine Estimated GFR/1.73 m2 BUN/Creatinine Ratio Glucose Calculated Osmolality Calcium Magnesium Total Bilirubin AST ALT Alkaline Phosphatase Creatine Kinase Troponin T Bao-U-Uyxuojquxlo Pept Total Protein Albumin Globulin Albumin/Globulin Ratio Plasma Lactate Urine Source Urine Color Urine Turbidity Urine pH Ur Specific Comfort Urine Protein Ur Glucose (Stick) Ur Ketones (Stick) Urine Blood Urine Nitrite Urine Bilirubin Urobilinogen Dipstick Urine Leukocytes Urine WBC (Auto) Urine RBC (Auto) U Epithel Cells (Auto) Urine Bacteria (Auto) Result Diagrams: 01/12/17 17:12 01/12/17 17:12 - XRAY 1 XRAY Study: Chest Impression: Abnormal XRAY Interpretation: interval worsening in the right infiltrates - CONSULTS/PCP/HOSPITALIST Notification #1 *Consult/PCP/Hospitalist*: Dr Alexander Time Discussed: 19:11 Consult Disposition: Admit Departure - Departure Date of Disposition Decision: 01/12/17 Time of Disposition Decision: 19:11 DIAGNOSIS: Pneumonia Qualifiers: Pneumonia type: due to unspecified organism Laterality: right Lung location: middle lobe of lung Qualified Code(s): J18.1 - Lobar pneumonia, unspecified organism DIAGNOSIS: (Ruled Out): Pneumonia involving right lung Disposition: ADMITTED INPATIENT 09 [facility] Medical Emergency: Emergent Condition: Fair Referrals and Follow-Ups: Tony Patel Jr, MD [Primary Care Provider] - - Critical Care Note This patient required my direct & personal management of CC.: No Comments: A 66 y/o M who presented tachycardic with hypoxia found to have worsening PNA, will start on IV ABX and admit for further evalaution This chart was documented by the indicated scribe, (Yareli Mcdaniel Scribe) and accurately reflects the services I performed and decisions made by me, Carson William MD, as attested by the provider's signature.
[2017-01-12 17:51] LABS: AGAP 12; ALBUMIN 2.6 g/dL (3.5-5.0); ALKALINE PHOSPHATASE 246 U/L (32-122); BUN 14 mg/dL (8-22); CALCIUM 7.9 mg/dL (8.8-10.2); CHLORIDE 99 mmol/L (98-107); CK PROFILE 57 U/L (24-204); COSMO 274; GOT 39 U/L (10-34); GPT 76 U/L (10-44); MAGNESIUM 1.1 mg/dL (1.5-2.7); POTASSIUM 4.1 mmol/L (3.5-5.1); SODIUM 137 mmol/L (136-145); TCO2 26 mmol/L (25-35); TOTAL BILIRUBIN 0.53 mg/dL (0.20-1.00); TOTAL PROTEIN 5.1 g/dL (6.3-8.3)
[2017-01-12 18:16] LABS: URINE CULTURE NEEDED? NO; URINE MICRO REVIEW NEEDED? NO; URINE SOURCE CATH
[2017-01-12 18:18] LABS: BILIRUBIN URINE NEGATIVE (NEGATIVE); BLOOD URINE NEGATIVE (NEGATIVE); COLOR YELLOW; GLUCOSE URINE NEGATIVE (NEGATIVE); LEUKOCYTES URINE NEGATIVE (NEGATIVE); NITRITE URINE NEGATIVE (NEGATIVE); PROTEIN URINE NEGATIVE (NEGATIVE); SP GRAVITY URINE 1.015; TURBIDITY URINE CLEAR (CLEAR); UROBILINOGEN URINE 2 mg/dL (NORMAL)
[2017-01-12 18:20] LABS: UR EPITHELIAL CELLS <10 /HPF (<10); URINE BACTERIA NEGATIVE /HPF; URINE RBC <10 /HPF (<10); URINE WBC <10 /HPF (<10)
[2017-01-12] MEDS ORDERED: VANCOMYCIN 1 GM/NS 1 GM/250 ML IVPB IV ONE (18:37)
[2017-01-12] MEDS ORDERED: ZOSYN 4.5 GM/NS 4.5 GM/100 ML IVPB IV ONE (18:37)
[2017-01-12] MEDS ORDERED: ZOFRAN IV PRN (19:01)
[2017-01-12] MEDS ORDERED: TYLENOL PO PRN (19:01)
[2017-01-12] MEDS ORDERED: LEVAQUIN 750 MG/D5W 750 MG/150 ML IVPB IV ONE (19:01)
[2017-01-12] MEDS ORDERED: NS 1,000 ML IV ONE (19:01)
[2017-01-12] MEDS ORDERED: DUONEB (A & A) INH SCH (19:30)
[2017-01-12] MEDS ORDERED: NEXIUM IV SCH (22:15)
[2017-01-12] MEDS ORDERED: VANCOMYCIN IV PER PHARMACY MISC SCH (22:15)
[2017-01-12] MEDS ORDERED: SODIUM CHLORIDE 0.9% INJ SCH (22:15)
[2017-01-12] MEDS ORDERED: NORCO-7.5 PO PRN (22:17)
[2017-01-12] MEDS: DURAGESIC 12 MICROGM/HR PATCH TD SCH (22:58)
[2017-01-12] MEDS: PROTONIX IV SCH (22:58)
[2017-01-12] MEDS: NS + KCL 20 MEQ 1,000 ML IV SCH (22:58)
[2017-01-12] MEDS: LOVENOX SUBQ SCH (22:58)
[2017-01-12] MEDS: SODIUM CHLORIDE 0.9% INJ SCH (22:58)
[2017-01-12] MEDS: SOLU-MEDROL IV SCH (22:58)
[2017-01-12] MEDS: XANAX PO PRN (23:07)
[2017-01-13] MEDS ORDERED: VANCOMYCIN 1 GM/NS 1 GM/250 ML IVPB IV ONE
--- NOTE | 2017-01-13 02:37 | HISTORY AND PHYSICAL ---
CHIEF COMPLAINT: A 66-year-old patient of Dr. Patel, admitted with increasing cough, chest congestion, shortness of breath, altered mental status. HISTORY OF PRESENT ILLNESS: Mr. Palomares was recently discharged from hospital, when he was admitted with pneumonia. At that time, patient found to have pancytopenia. He had a history of metastatic esophageal cancer. The patient was on home IV antibiotics. According to , lately he had increasing cough, chest congestion, shortness of breath. The patient was more weak. The noticed his breathing was stopping at times. This history is vague. The patient was not getting any better. He was deteriorating. called EMS. Brought to the emergency room. His chest x-ray did show deterioration of chest findings, and with overall history of clinical deterioration and radiological deterioration. Also, the patient was tachypneic, tachycardic. At times, blood pressure was low normal. We decided to admit the patient for further care. The patient's oral intake was poor. He had a poor appetite. The patient does have chronic generalized pain. We are going to change his Duragesic patch today, as it is due. Patient had urinary frequency, urgency, polyuria, polydipsia. He denied any diarrhea. No blood or mucus in the stool. Vague abdominal pain. At times nausea, but no vomiting. The patient did have cough, chest congestion, but no hemoptysis, no runny nose, stuffy nose. The patient was feeling weak, tired, and no energy. The patient does need assistance in activities of daily living. No further history available at this time. ALLERGIES: No known drug allergy. HOME MEDICATIONS: The patient is on Xanax, aspirin, Wellbutrin, dexamethasone, Cymbalta, fenofibric acid, fentanyl patch, Funk, Glucophage, Remeron, Crestor, Restoril. PAST MEDICAL HISTORY: Significant for metastatic esophageal cancer, hyperlipidemia. The patient had a fall and bruise to the right hip. Coronary artery disease, type 2 diabetes mellitus, osteoarthritis, situational anxiety and depression. PERSONAL HISTORY: . Lives with the . Nonsmoker. Denied alcohol or substance abuse. FAMILY HISTORY: Significant for hypertension. REVIEW OF SYSTEMS: As per HPI. Otherwise, unobtainable. PHYSICAL EXAMINATION: GENERAL: Elderly white gentleman, in mild distress. VITAL SIGNS: Blood pressure 97/69, pulse 107, respirations 20, temperature 97.8. SKIN: Senile turgor. HEENT: Head atraumatic, normocephalic. Cygnet conjunctivae. Anicteric sclerae. Extraocular muscle movement normal. Fundus cannot be penetrated. Good oral hygiene. No tonsillopharyngeal congestion or exudate. Ears and nose benign. NECK: Supple. No JVD, thyromegaly or lymphadenopathy. CHEST: Bilateral good air entry present. Inspiratory crepitations, right base. Occasional wheezing. CARDIOVASCULAR: S1 and S2 heard. ABDOMEN: Soft, globular. Bowel sounds present. EXTREMITIES: No cyanosis, clubbing. No acute DVT. Patient does have bruise naina, right lower abdominal wall, groin, and right hip area, which is old. CENTRAL NERVOUS SYSTEM: Alert, awake, answering questions fairly well. LABORATORY DATA: ProBNP was 1492. AST 39, ALT 76, alkaline phosphatase 246. PT and PTT results reviewed. WBC count 10.61, hemoglobin 10.7, hematocrit 31.7, platelet count was 89. CONSIDERATION: 1. Worsening right lower lung infiltrate, metastatic esophageal cancer. 2. Noninsulin-dependent diabetes mellitus. 3. Gastritis and reflux disease. 4. Chronic pain. PLAN: Admit the patient. Broad-spectrum IV antibiotics. Pulmonary toilet. Steroid. Will consider ID consult. Continue pain medicine and home medications. GI prophylaxis and DVT prophylaxis. Overall plan discussed with patient and , and they are in agreement. cc: MD Tony Stout Jr, MD
[2017-01-13] MEDS: DUONEB (A & A) INH SCH ×4 (04:11→22:52)
[2017-01-13] MEDS: SOLU-MEDROL IV SCH ×3 (06:55→22:00)
--- NOTE | 2017-01-13 07:11 | Diag Imaging Result Doc PS360 ---
EXAM: CHEST-PORTABLE HISTORY: dyspnea TECHNIQUE: Portable COMPARISON: 01/12/2017 FINDINGS: There are dense infiltrates throughout the right lung. Heart is not enlarged. The left lung remains clear. No change in the left subclavian portacatheter. No pneumothorax. IMPRESSION: No interval improvement. Electronically signed by Miguel Arceo 01/13/2017 7:08 AM
[2017-01-13 07:17] LABS: BASO% 0.2 % (0.0-0.8); EOS# 0.01 X1000 (0.0-0.7); EOS% 0.1 % (0.0-10.0); HEMATOCRIT 29.7 % (42.0-52.0); IMM GRAN# 0.57 X1000 (0.0-0.04); IMM GRAN% 5.7 % (0.0-0.5); LYMPH# 0.33 X1000 (1.2-3.4); LYMPH% 3.3 % (20.5-51.1); MANUAL DIFF NEEDED? YES; MCH 31.6 PG (27-31); MCHC 33.7 g/dL (33-37); MONO# 0.14 X1000 (0.11-0.59); MONO% 1.4 % (1.7-9.3); MPV 10.1 FL (7.4-10.4); NEUT% 89.3 % (42.2-75.2); PLT 87 X1000 (130-400); RBC 3.16 XMIL (4.7-6.1)
[2017-01-13] MEDS: HUMALOG SUBQ SCH ×4 (07:19→21:55)
[2017-01-13 07:38] LABS: AGAP 10; ALBUMIN 2.5 g/dL (3.5-5.0); ALKALINE PHOSPHATASE 214 U/L (32-122); BUN 16 mg/dL (8-22); CALCIUM 7.8 mg/dL (8.8-10.2); CHLORIDE 100 mmol/L (98-107); COSMO 274; GOT 30 U/L (10-34); GPT 62 U/L (10-44); MAGNESIUM 1.2 mg/dL (1.5-2.7); POTASSIUM 4.6 mmol/L (3.5-5.1); SODIUM 134 mmol/L (136-145); TCO2 24 mmol/L (25-35); TOTAL BILIRUBIN 0.67 mg/dL (0.20-1.00); TOTAL PROTEIN 4.8 g/dL (6.3-8.3)
--- NOTE | 2017-01-13 07:59 | PROGRESS NOTE ---
DATE: 01/13/2017 SUBJECTIVE: I asked the patient if he was breathing any better. He says he is not sure. He was a little bit lethargic. He may just be tired from his heavier breathing. The patient has metastatic esophageal cancer, was in the hospital until just a couple of days ago and was discharged home on IV antibiotics to be given at home. The patient became more short of breath. Family was uncomfortable and brought the patient back to the emergency room. Chest x-ray shows no improvement of the pneumonia. The patient seemed to think he was getting worse clinically. OBJECTIVE: Vital Signs: Respiration rate is 18, pulse 84, blood pressure is not listed yet in the chart. His oxygen saturation is 99% on 2 L. HEENT: Normocephalic. EOMs intact. PERRLA. Throat clear. Lungs: Have scattered rales and rhonchi. I hear no wheezing at this time. Heart: Regular rate and rhythm without murmurs, gallops, or friction rubs. Abdomen: Soft. Active bowel sounds. No organomegaly or tenderness. It should be noted that in the ER record (the patient could not tell me this) that the patient was apparently hypoxic but seems to be doing better now. ASSESSMENT: 1. 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 2. Pneumonia. 3. Anxiety. PLAN: We will continue to support. cc: Tony Patel Jr, MD
[2017-01-13] MEDS ORDERED: FENOFIBRIC ACID PO SCH (09:00)
[2017-01-13] MEDS: TRICOR PO SCH (09:47)
[2017-01-13] MEDS: GLUCOPHAGE PO SCH (09:47)
[2017-01-13] MEDS: WELLBUTRIN PO SCH (09:47)
[2017-01-13] MEDS: CRESTOR PO SCH (09:47)
[2017-01-13 10:19] LABS: BANDS 1 % (0-1); LYMPHS 2 % (21-51); MONO 1 % (1-9)
[2017-01-13] MEDS: XANAX PO PRN ×2 (11:22→21:56)
[2017-01-13] MEDS: NS + KCL 20 MEQ 1,000 ML IV SCH (16:40)
[2017-01-13] MEDS: VANCOMYCIN 1,500 MG in NS 250 ML IV SCH (16:40)
[2017-01-13] MEDS: NORCO-7.5 PO PRN ×2 (18:02→22:08)
[2017-01-13] MEDS: CYMBALTA PO SCH (21:55)
[2017-01-13] MEDS: REMERON PO SCH (21:56)
[2017-01-13] MEDS: LOVENOX SUBQ SCH (22:00)
[2017-01-13] MEDS: SODIUM CHLORIDE 0.9% INJ SCH (22:00)
[2017-01-13] MEDS: PROTONIX IV SCH (22:00)
[2017-01-14] MEDS: VANCOMYCIN 1,500 MG in NS 250 ML IV SCH ×2 (00:12→14:36)
[2017-01-14] MEDS: NORCO-7.5 PO PRN ×2 (02:38→10:46)
[2017-01-14] MEDS: DUONEB (A & A) INH SCH ×4 (04:02→23:31)
[2017-01-14] MEDS: SOLU-MEDROL IV SCH ×3 (06:16→22:12)
[2017-01-14] MEDS: HUMALOG SUBQ SCH ×4 (06:17→22:10)
[2017-01-14] MEDS: NS + KCL 20 MEQ 1,000 ML IV SCH ×2 (06:18→23:50)
[2017-01-14 06:36] LABS: BASO% 0.2 % (0.0-0.8); HEMATOCRIT 26.8 % (42.0-52.0); HEMOGLOBIN 8.8 g/dL (14.0-18.0); IMM GRAN# 0.29 X1000 (0.0-0.04); IMM GRAN% 3.5 % (0.0-0.5); LYMPH# 0.36 X1000 (1.2-3.4); LYMPH% 4.3 % (20.5-51.1); MANUAL DIFF NEEDED? YES; MCH 31.3 PG (27-31); MCHC 32.8 g/dL (33-37); MCV 95.4 FL (81-99); MONO# 0.21 X1000 (0.11-0.59); MONO% 2.5 % (1.7-9.3); MPV 10.3 FL (7.4-10.4); NEUT% 89.5 % (42.2-75.2); PLT 85 X1000 (130-400); RBC 2.81 XMIL (4.7-6.1)
[2017-01-14 07:11] LABS: AGAP 13; BUN 27 mg/dL (8-22); CALCIUM 7.4 mg/dL (8.8-10.2); CHLORIDE 104 mmol/L (98-107); COSMO 293; POTASSIUM 4.4 mmol/L (3.5-5.1); SODIUM 140 mmol/L (136-145); TCO2 23 mmol/L (25-35)
--- NOTE | 2017-01-14 07:12 | Diag Imaging Result Doc PS360 ---
CHEST-PORTABLE - 01/14/2017 INDICATION: pneumonia TECHNIQUE: COMPARISON: 01/13/2017 FINDINGS: Stable left chest port in good position. There is slight worsening ill-defined infiltrate versus bronchial vascular crowding in the left midlung and lung base. Stable multilobar infiltrate throughout the right lung. This is worse in the right upper lobe. Lung volumes remain low. Heart size is top normal. IMPRESSION: Perhaps slight worsening infiltrate or bronchovascular crowding in the left lung base. Overall little change from prior exams. Electronically signed by Judson Cm 01/14/2017 7:10 AM
[2017-01-14 07:41] LABS: BANDS 2 % (0-1); LYMPHS 8 % (21-51)
--- NOTE | 2017-01-14 10:01 | PROGRESS NOTE ---
DATE: 01/14/2017 SUBJECTIVE: The patient says that he still has pain and he wants stronger pain medication. He is on hydrocodone and fentanyl but we will add some Dilaudid when he needs it. He also has been anxious but he is on Xanax 2 mg every 8 hours as needed for anxiety. He does tell me that he is not able to move his right leg. 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 Apparently, the leg problem has been going on for some time. PHYSICAL EXAMINATION: Vital Signs: Blood pressure 119/84, respirations 16, pulse 83, temperature 97.7 degrees Fahrenheit. Oxygen saturations is 98% on room air. HEENT: Normocephalic. EOMs intact. PERRLA. Throat clear. Lungs: Fairly clear to auscultation. Heart: Regular rate and rhythm without murmurs, gallops, or friction rubs. Abdomen: Soft. Active bowel sounds. No organomegaly or tenderness. Neurological Examination: Patient is not moving the right lower extremity well but this has been chronic. DIAGNOSTIC DATA: The patient did have a very small left cortical metastasis on his MRI scan, left parietal area which could be is affecting his leg. ASSESSMENT: 1. 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 2. Pneumonia. 3. Anxiety. 4. Paralysis of the right lower extremity. PLAN: Continue treatment. I have consulted infectious disease to see if there needs to be change made with the antibiotics. Some of what we see on x-ray may be from cancer, however. Continue care. cc: Tony Patel Jr, MD
[2017-01-14] MEDS: XANAX PO PRN ×2 (10:45→23:56)
[2017-01-14] MEDS: GLUCOPHAGE PO SCH (10:45)
[2017-01-14] MEDS: TRICOR PO SCH (10:47)
[2017-01-14] MEDS: CRESTOR PO SCH (10:48)
[2017-01-14] MEDS: WELLBUTRIN PO SCH (10:48)
[2017-01-14] MEDS: LEVAQUIN PO SCH (18:15)
[2017-01-14] MEDS: MERREM 1 GM in NS 50 ML IV SCH (18:25)
[2017-01-14] MEDS: LOVENOX SUBQ SCH (22:00)
[2017-01-14] MEDS: REMERON PO SCH (22:00)
[2017-01-14] MEDS: CYMBALTA PO SCH (22:00)
--- NOTE | 2017-01-14 22:03 | PROGRESS NOTE ---
DATE: 01/14/2017 PRESENT ILLNESS: The patient went home on IV antibiotics. He was readmitted. The chest x-ray shows there is worsening bilateral infiltrates. MEDICATIONS: The patient was sent home on a combination of vancomycin and cefepime. Currently, the patient is just on vancomycin as a single agent. PHYSICAL EXAMINATION: Vital Signs: Temperature is 97.5 degrees, pulse 84, respirations 18, blood pressure 116/73. General: This is an ill-appearing, elderly male. He is in no acute distress. Lungs: Clear to auscultation. Cardiovascular: Regular heart rate. Abdomen: Soft and nontender. Neurologic: Patient is slightly lethargic. He is weak. LAB AND X-RAY: Chest x-ray shows worsening bilateral infiltrates. CBC shows a white count of 8290, hemoglobin 8.8, and platelet count 85,000. Creatinine is 0.6. GFR is greater than 60. Blood cultures are thus far sterile. ASSESSMENT AND PLAN: Patient has worsening pneumonia. I agree with starting the patient on vancomycin. To this I have added meropenem IV and Levaquin p.o. COMORBIDITIES: Include esophageal cancer which is metastatic, gastroesophageal reflux disease and diabetes mellitus. cc: MD Tony Kohler Jr, MD
[2017-01-14] MEDS: DILAUDID IV PRN (22:07)
[2017-01-14] MEDS: PROTONIX IV SCH (22:11)
[2017-01-14] MEDS: SODIUM CHLORIDE 0.9% INJ SCH (22:11)
[2017-01-15] MEDS: MERREM 1 GM in NS 50 ML IV SCH ×4 (00:39→23:52)
[2017-01-15] MEDS: VANCOMYCIN 1,500 MG in NS 250 ML IV SCH ×2 (02:00→14:39)
[2017-01-15] MEDS: DUONEB (A & A) INH SCH ×4 (03:34→22:40)
[2017-01-15] MEDS: SOLU-MEDROL IV SCH ×3 (06:37→22:17)
[2017-01-15] MEDS: HUMALOG SUBQ SCH ×5 (06:38→22:02)
[2017-01-15 07:33] LABS: BASO% 0.4 % (0.0-0.8); HEMOGLOBIN 9.1 g/dL (14.0-18.0); IMM GRAN# 0.48 X1000 (0.0-0.04); IMM GRAN% 4.6 % (0.0-0.5); LYMPH# 0.43 X1000 (1.2-3.4); LYMPH% 4.2 % (20.5-51.1); MANUAL DIFF NEEDED? YES; MCH 31.4 PG (27-31); MCHC 32.5 g/dL (33-37); MCV 96.6 FL (81-99); MONO# 0.37 X1000 (0.11-0.59); MONO% 3.6 % (1.7-9.3); MPV 10.7 FL (7.4-10.4); NEUT% 87.2 % (42.2-75.2); PLT 97 X1000 (130-400)
[2017-01-15 07:36] LABS: AGAP 9; BUN 27 mg/dL (8-22); CALCIUM 7.6 mg/dL (8.8-10.2); CHLORIDE 108 mmol/L (98-107); COSMO 292; POTASSIUM 4.5 mmol/L (3.5-5.1); SODIUM 141 mmol/L (136-145); TCO2 24 mmol/L (25-35)
[2017-01-15 08:42] LABS: BANDS 2 % (0-1); LYMPHS 12 % (21-51)
[2017-01-15] MEDS: TRICOR PO SCH (10:23)
[2017-01-15] MEDS: WELLBUTRIN PO SCH (10:23)
[2017-01-15] MEDS: GLUCOPHAGE PO SCH (10:23)
[2017-01-15] MEDS: LEVAQUIN PO SCH (10:23)
[2017-01-15] MEDS: CRESTOR PO SCH (10:24)
[2017-01-15] MEDS: NORCO-7.5 PO PRN (10:44)
[2017-01-15] MEDS: NS + KCL 20 MEQ 1,000 ML IV SCH ×2 (10:46→18:25)
--- NOTE | 2017-01-15 15:02 | PROGRESS NOTE ---
DATE: 01/15/2017 SUBJECTIVE: Patient says he is feeling a little bit better, and he is breathing a little bit better. OBJECTIVE: Vital Signs: Blood pressure 105/64, respirations 20, pulse 85 and regular, temperature 96.6 degrees Fahrenheit. HEENT: Normocephalic. EOMs intact. PERRLA. Throat clear. Lungs: Have a few rales anteriorly. Heart: Regular rate rhythm without murmurs, gallops, or friction rubs. Abdomen: Soft. Active bowel sounds. No organomegaly or tenderness. Neurological: Intact grossly. ASSESSMENT: 1. Esophageal cancer with metastasis stage IV. 2. Pneumonia. 3. Adult-onset diabetes mellitus. PLAN: We will continue current antibiotics. We will get chest x-ray tomorrow. cc: Tony Patel Jr, MD
[2017-01-15] MEDS ORDERED: MIRALAX PO ONE (15:06)
[2017-01-15] MEDS: XANAX PO PRN ×2 (15:54→23:52)
--- NOTE | 2017-01-15 18:48 | PROGRESS NOTE ---
DATE: 01/15/2017 PRESENT ILLNESS: The patient was readmitted to the hospital because of worsening of his pneumonia. MEDICATIONS: This is day 1 of treatment with vancomycin and cefepime and day 3 of treatment with vancomycin. PHYSICAL EXAMINATION: Vital Signs: Temperature is 97.6 degrees, pulse 98, respirations 25, blood pressure 129/86. General: This is an ill-appearing elderly male. He is in no acute distress. Cardiovascular: Heart rate is regular. Abdomen: Soft and nontender. Lungs: Clear to auscultation. Neurologic: Patient is alert. He can move his extremities but he is weak. LAB AND X-RAY: CBC shows a white count of 10,340, hemoglobin 9.1 and platelet count 97,000. Creatinine is 0.6. GFR is greater than 60. Blood cultures are negative. ASSESSMENT AND PLAN: My plan is to continue the patient's current antimicrobial agents. COMORBIDITIES: Include advanced esophageal cancer which is metastatic, gastroesophageal reflux disease and diabetes mellitus. cc: MD Tony Kohler Jr, MD
[2017-01-15] MEDS ORDERED: CALMOSEPTINE OINTMENT TOP PRN (21:54)
[2017-01-15] MEDS: DILAUDID IV PRN (22:02)
[2017-01-15] MEDS: REMERON PO SCH (22:02)
[2017-01-15] MEDS: CYMBALTA PO SCH (22:02)
[2017-01-15] MEDS: PROTONIX IV SCH (22:17)
[2017-01-15] MEDS: SODIUM CHLORIDE 0.9% INJ SCH (22:17)
[2017-01-15] MEDS: DURAGESIC 12 MICROGM/HR PATCH TD SCH (22:17)
[2017-01-15] MEDS: LOVENOX SUBQ SCH (22:17)
[2017-01-16] MEDS: VANCOMYCIN 1,500 MG in NS 250 ML IV SCH ×2 (02:31→13:02)
[2017-01-16] MEDS: NS + KCL 20 MEQ 1,000 ML IV SCH ×2 (02:40→13:03)
[2017-01-16] MEDS: SODIUM CHLORIDE 0.9% INJ SCH ×2 (02:41→22:06)
[2017-01-16] MEDS: DUONEB (A & A) INH SCH ×4 (03:47→22:44)
[2017-01-16] MEDS: SOLU-MEDROL IV SCH ×2 (06:31→16:42)
[2017-01-16] MEDS: HUMALOG SUBQ SCH ×4 (06:32→22:07)
[2017-01-16 07:08] LABS: BASO% 0.3 % (0.0-0.8); EOS# 0.01 X1000 (0.0-0.7); EOS% 0.1 % (0.0-10.0); HEMATOCRIT 28.6 % (42.0-52.0); HEMOGLOBIN 9.4 g/dL (14.0-18.0); IMM GRAN# 0.44 X1000 (0.0-0.04); IMM GRAN% 5.7 % (0.0-0.5); LYMPH# 0.42 X1000 (1.2-3.4); LYMPH% 5.4 % (20.5-51.1); MANUAL DIFF NEEDED? YES; MCH 31.5 PG (27-31); MCHC 32.9 g/dL (33-37); MONO# 0.22 X1000 (0.11-0.59); MONO% 2.8 % (1.7-9.3); MPV 10.2 FL (7.4-10.4); NEUT% 85.7 % (42.2-75.2); PLT 89 X1000 (130-400); RBC 2.98 XMIL (4.7-6.1)
[2017-01-16 07:11] LABS: AGAP 14; BUN 28 mg/dL (8-22); CALCIUM 7.6 mg/dL (8.8-10.2); CHLORIDE 106 mmol/L (98-107); COSMO 293; POTASSIUM 4.7 mmol/L (3.5-5.1); SODIUM 142 mmol/L (136-145); TCO2 22 mmol/L (25-35)
[2017-01-16 07:34] LABS: BANDS 2 % (0-1); LYMPHS 8 % (21-51); MONO 4 % (1-9)
--- NOTE | 2017-01-16 08:21 | Diag Imaging Result Doc PS360 ---
EXAM: CHEST-2 VIEWS INDICATION: pneumonia TECHNIQUE: 2 views COMPARISON: 01/14/2017 FINDINGS: The left chest port is in stable position. Inspiration is suboptimal. The diffuse right lung infiltrate is essentially stable given slight differences in inspiration. No new consolidations are appreciated. Cardiac silhouette is stable. IMPRESSION: Slightly poorer inspiration but essentially stable chest, otherwise. Electronically signed by Eduard Rooney 01/16/2017 8:19 AM
[2017-01-16] MEDS ORDERED: CITRATE OF MAGNESIA PO ONE (08:58)
[2017-01-16] MEDS: TRICOR PO SCH (09:24)
[2017-01-16] MEDS: WELLBUTRIN PO SCH (09:24)
[2017-01-16] MEDS: MERREM 1 GM in NS 50 ML IV SCH ×2 (09:24→16:42)
[2017-01-16] MEDS: LEVAQUIN PO SCH (09:24)
[2017-01-16] MEDS: MIRALAX PO SCH (09:24)
[2017-01-16] MEDS: CRESTOR PO SCH (09:24)
[2017-01-16] MEDS: GLUCOPHAGE PO SCH (09:24)
[2017-01-16] MEDS: XANAX PO PRN ×2 (09:42→22:57)
--- NOTE | 2017-01-16 12:21 | PROGRESS NOTE ---
DATE: 01/16/2017 SUBJECTIVE: Patient says he is feeling a little better. His breathing is better. He has still not had a bowel movement since Saturday, and this is Saturday. We gave him some MiraLAX yesterday, but he has had no results. OBJECTIVE: Blood pressure is 116/82, respirations 20, pulse 98 and regular, temperature 97.4 degrees Fahrenheit.HEENT: Normocephalic. EOMs intact. PERRLA. Throat clear. Lungs: Sound fairly clear to auscultation. Chest x-ray still shows right-sided pneumonia that is about the same as it was previously. Heart: Regular rate and rhythm, without murmurs, gallops, or friction rubs. Abdomen: Soft. Active bowel sounds. No organomegaly or tenderness. Neurologic: Intact grossly. ASSESSMENT: 1. Pneumonia. 2. Metastatic esophageal cancer. 3. Constipation. PLAN: We will give some magnesium citrate to see if we can get some bowel movement. cc: Tony Patel Jr, MD
[2017-01-16] MEDS: NORCO-7.5 PO PRN ×2 (14:27→22:18)
[2017-01-16] MEDS: REMERON PO SCH (22:06)
[2017-01-16] MEDS: PROTONIX IV SCH (22:06)
[2017-01-16] MEDS: LOVENOX SUBQ SCH (22:06)
[2017-01-16] MEDS: CYMBALTA PO SCH (22:06)
[2017-01-17] MEDS: SOLU-MEDROL IV SCH ×4 (01:33→22:32)
[2017-01-17] MEDS: MERREM 1 GM in NS 50 ML IV SCH ×3 (01:40→15:42)
--- NOTE | 2017-01-17 03:59 | PROGRESS NOTE ---
DATE: 01/16/2017 PRESENT ILLNESS: The patient was admitted with a worsening pneumonia. MEDICATIONS: This is day 2 of treatment with p.o. Levaquin and IV meropenem, and day 4 of treatment with IV vancomycin. PHYSICAL EXAMINATION: Vital Signs: Temperature is 97.5 degrees, pulse 61, respirations 18, blood pressure 92/53. General: This is an ill-appearing, elderly male. He is in no acute distress. He is weak. He is not complaining of any chest pain or dyspnea. Lungs: Clear to auscultation. Cardiovascular: Regular heart rate. Abdomen: Soft and nontender. Thorax: Patient has a Port-A- Cath in place. The site is not erythematous or swollen. LAB AND X-RAY: The chest x-ray shows no change in the right lung infiltrate. CBC shows a white count of 7770, hemoglobin 9.4, platelet count 89,000. Creatinine is 0.6. GFR is greater than 60. Blood cultures are negative. ASSESSMENT AND PLAN: The fact that the patient's x-ray is no worse and it was getting worse when he came in here means that the antibiotics appear to be benefitting him. I think I would like to continue his antibiotics for 2 or 3 weeks. I asked the patient about doing home antibiotics, and he is going to discuss the situation with his . If we do send him home, I will keep him on the same 3 antibiotics that he is on right now of vancomycin, cefepime, and Levaquin. COMORBIDITIES: The patient has advanced metastatic esophageal cancer. He also has gastroesophageal reflux disease and diabetes mellitus. cc: MD Tony Kohler Jr, MD
[2017-01-17] MEDS: DUONEB (A & A) INH SCH ×4 (04:21→22:48)
[2017-01-17] MEDS: VANCOMYCIN 1,500 MG in NS 250 ML IV SCH (04:35)
[2017-01-17] MEDS: NS + KCL 20 MEQ 1,000 ML IV SCH ×2 (04:35→15:43)
[2017-01-17] MEDS: XANAX PO PRN ×2 (06:22→15:40)
[2017-01-17] MEDS: HUMALOG SUBQ SCH ×4 (06:23→22:38)
[2017-01-17] MEDS: MIRALAX PO SCH (08:18)
[2017-01-17] MEDS: LEVAQUIN PO SCH (08:18)
[2017-01-17] MEDS: CRESTOR PO SCH (08:19)
[2017-01-17] MEDS: WELLBUTRIN PO SCH (08:19)
[2017-01-17] MEDS: TRICOR PO SCH (08:19)
[2017-01-17] MEDS: GLUCOPHAGE PO SCH (08:19)
--- NOTE | 2017-01-17 12:36 | PROGRESS NOTE ---
DATE: 01/17/2017 SUBJECTIVE: Patient is feeling better. He says his breathing is better. He would like to be considered for rehab as he was walking and stronger before he got sick with the pneumonia. We had tried sending him home with IV antibiotics previously and he came right back. The antibiotics we are using now seemed to be doing a better job, but he says he just still feels weak. OBJECTIVE: Vital Signs: Blood pressure is 110/71, respirations 20, pulse 93 and regular, temperature 97.7 degrees Fahrenheit. HEENT: He is normocephalic, EOMs intact. Throat clear. Lungs: Sound fairly clear to auscultation. Heart: Regular rate rhythm without murmurs, gallops, friction rubs. Abdomen: Soft. Active bowel sounds. No organomegaly or tenderness. Neurological: Exam is intact grossly. ASSESSMENT: 1. Stage IV esophageal cancer with metastasis to liver, lungs and brain. The patient is alert and appropriate, however. 2. Pneumonia. 3. Debilitation from lying in bed. PLAN: We will try to get him into rehab. Chest x-ray in the morning. cc: Tony Patel Jr, MD
[2017-01-17] MEDS: DILAUDID IV PRN (15:41)
--- NOTE | 2017-01-17 16:35 | PROGRESS NOTE ---
DATE: 01/17/2017 PRESENT ILLNESS: The patient was treated for pneumonia in the hospital. He was discharged and his pneumonia got worse. Now since he has been back in the hospital it is getting better again. MEDICATIONS: This is day 3 of treatment with p.o. Levaquin and IV meropenem and day 5 of treatment with IV vancomycin. PHYSICAL EXAMINATION: Vital Signs: Temperature is 97.7 degrees, pulse 79, respirations 16, blood pressure 110/71. General: This is an ill-appearing elderly male who is in no acute distress. Thorax: The patient has an increased AP diameter of the chest. Lungs: There were a few rhonchi on the left side; the right side was clear. Cardiovascular: Heart rate was regular. Abdomen: Soft and nontender. Patient has a Port-A-Cath present on the left side of his chest. The site is not erythematous or swollen. LAB AND X-RAY: There is no new x-ray today, and there are no new laboratory studies today. ASSESSMENT AND PLAN: The patient has pneumonia. My plan would be to continue with the current antibiotics. COMORBIDITIES: The patient's comorbidities include advanced metastatic esophageal cancer to the lung and brain. Patient also has gastroesophageal reflux disease and diabetes mellitus. cc: MD Tony Kohler Jr, MD
[2017-01-17] MEDS ORDERED: GOLYTELY PO ONE (16:41)
[2017-01-17] MEDS: MYCOSTATIN SUSP PO SCH ×2 (17:37→20:00)
[2017-01-17] MEDS: CYMBALTA PO SCH (21:00)
[2017-01-17] MEDS: REMERON PO SCH (21:22)
[2017-01-17] MEDS: SODIUM CHLORIDE 0.9% INJ SCH (22:34)
[2017-01-17] MEDS: PROTONIX IV SCH (22:35)
[2017-01-17] MEDS: LOVENOX SUBQ SCH (22:36)
[2017-01-17] MEDS: NORCO-7.5 PO PRN (22:37)
[2017-01-18] MEDS: MERREM 1 GM in NS 50 ML IV SCH ×2 (01:30→08:17)
[2017-01-18] MEDS: DUONEB (A & A) INH SCH ×2 (04:05→11:00)
[2017-01-18] MEDS: NS + KCL 20 MEQ 1,000 ML IV SCH (04:46)
[2017-01-18] MEDS ORDERED: VANCOMYCIN 2 GM in NS 500 ML IV SCH (05:00)
[2017-01-18] MEDS: HUMALOG SUBQ SCH (06:38)
[2017-01-18] MEDS: SOLU-MEDROL IV SCH (06:38)
--- NOTE | 2017-01-18 07:23 | Diag Imaging Result Doc PS360 ---
EXAM: CHEST-2 VIEWS HISTORY: pneumonia TECHNIQUE: AP upright and lateral chest COMMENT: There are bilateral pleural effusions. There may be loculated fluid on the right. There is patchy alveolar opacity throughout the right upper lobe. This has improved slightly since 01/16/2017. The pleural fluid collections may be slightly worse however. IMPRESSION: Improving right upper lobe pneumonia. Pleural effusions which may be loculated on the right. Electronically signed by Chalino Stiles 01/18/2017 7:21 AM
[2017-01-18 07:45] VITALS: BP 118/71
[2017-01-18] MEDS: WELLBUTRIN PO SCH (08:18)
[2017-01-18] MEDS: MIRALAX PO SCH (08:18)
[2017-01-18] MEDS: LEVAQUIN PO SCH (08:18)
[2017-01-18] MEDS: XANAX PO PRN (08:18)
[2017-01-18] MEDS: CRESTOR PO SCH (08:18)
[2017-01-18] MEDS: GLUCOPHAGE PO SCH (08:18)
[2017-01-18] MEDS: TRICOR PO SCH (08:18)
--- NOTE | 2017-01-18 10:20 | DISCHARGE SUMMARY ---
ADMISSION DATE: 01/12/2017 DISCHARGE DATE: 01/18/2017 FINAL DIAGNOSES: 1. Pneumonia. 2. Stage IV esophageal cancer with metastasis to lungs and brain. 3. Constipation. 4. Hyperlipidemia. 5. Acute onset diabetes mellitus. DISCHARGE MEDICATIONS: Please see medication list for discharge medicines, plus he will be on some IV medications at rehab. The patient will be treated for 2-3 weeks depending on his response and chest x-rays. PRESENT ILLNESS: Patient had been recently discharged from the hospital with pneumonia and attempted to be treated at home with IV antibiotics, but he got worse with this, came back to the hospital. Chest x-ray showed worsening of the pneumonia. Placed him on a new regimen of IV antibiotics plus oral Levaquin, which includes vancomycin and meropenem. The patient has also been on some Solu-Medrol, which we will change to prednisone. Chest x-ray showed improvement of the infiltrate today. He seems to be responding to these antibiotics. Consultation was with Dr. Angelika Joseph of infectious disease. PHYSICAL EXAMINATION: Vital Signs: Show a temp of 97.3 degrees Fahrenheit, pulse 76, respirations 20, blood pressure 118/71, O2 saturation of 97% on room air. The patient did get some response with his GoLYTELY. HEENT: Normocephalic. EOMS intact. PERRLA. Throat clear. Lungs: Sound fairly clear to auscultation and percussion without rhonchi, rales, or wheezes today. Heart: Regular rate and rhythm without murmurs, gallops or friction rubs. Abdomen: Soft. Active bowel sounds. No organomegaly or tenderness. Neurological exam: Intact grossly. PLAN: We will discharge him to rehabilitation, but rehabilitation will have to give IV antibiotics as prescribed, which will mean giving one antibiotic q. 8 hours. If for some reason they cannot give that medication as prescribed, then this discharge will be stopped and the patient will remain here in the hospital until he clears and then consider rehab after that. I do not have the information yet about whether the rehab will do the meropenem q. 8 hours or not yet. I would like to see the patient when he gets out of rehab and we should get a chest x-ray weekly at the rehab. cc: Tony Patel Jr, MD
--- NOTE | 2017-01-18 10:36 | PROGRESS NOTE ---
DATE: 01/18/2017 PRESENT ILLNESS: The patient is being treated for pneumonia. Unfortunately, he has metastatic esophageal cancer to the lung and brain. How much of the infiltrate the patient has is due to the malignancy and how much of it is attributable to pneumonia is somewhat difficult to say. The chest x-ray today shows that the infiltrates are decreasing, which would indicate that the infiltrates are due to infection rather than malignancy. MEDICATIONS: This is day 5 of treatment with vancomycin and day 3 of treatment with the combination of meropenem IV and Levaquin p.o. PHYSICAL EXAMINATION: Vital Signs: Temperature is 97.3 degrees, pulse 96, respirations 20, blood pressure 118/71. General: This is a somewhat ill-appearing, elderly male. He is in no acute distress. Lungs: Clear to auscultation. Thorax: Patient has an increased AP diameter. The patient has a Port-A-Cath present on the left side of the chest. Cardiovascular : Heart rate is regular. Abdomen: Soft and nontender. LAB AND X-RAY: The chest x-ray shows improvement in the patient's infiltrates, but worsening of his pleural effusions. There are no new lab studies today. ASSESSMENT AND PLAN: I have ordered a complete blood count, basic metabolic panel and a chest x- ray to be done on SaturdayJanuary 21. The patient has pneumonia. I plan to continue his antibiotics. COMORBIDITIES: The patient's comorbidities include advanced metastatic esophageal cancer to the lung and brain. Patient also has gastroesophageal reflux disease and diabetes mellitus. cc: MD Tony Kohler Jr, MD MTDD
[2017-01-18] MEDS: MYCOSTATIN SUSP PO SCH (11:03)
== END 2017-01-18 11:41 ==
LOC: SUPCPDRO → ED 15:56 → 3N 21:39
PROVIDERS: ADMIT Emergency Medicine; ATTEND Emergency Medicine